=== PATIENT | male | born 1965 | race Caucasian/White ===

== ENCOUNTER → 2018-11-19 | Outpatient (CLI) | payer BC ==
[2018-11-19 11:33] LABS: Appearance,Urine Clear (Clear); Bilirubin,Urine Negative (Negative); Blood,Urine Negative (Negative); Color,Urine Yellow; Glucose,Urine (UA) Negative (Negative); Ketones,Urine Negative (Negative); Leukocyte Esterase,Urine Negative (Negative); Nitrite,Urine Negative (Negative); PH, Urine 5.5 (5.0-8.0); Protein,Urine Negative (Negative); Specific Gravity,Urine 1.019 (1.001-1.035); Urobilinogen,Urine <2.0 mg/dL (<2.0)
[2018-11-19 11:44] LABS: HCT 47.6 % (39.0-53.0); HGB 15.3 gm/dL (13.0-17.5); MCHC 32.2 g/dL (31.0-37.0); MCV 102.6 fL (80.0-100.0); Macrocytosis Slight; Mean Platelet Volume 6.4; Platelet Count 234 k/uL (150-450); RBC 4.64 m/uL (4.30-5.90); RDW 12.4 % (11.5-15.5); WBC 8.6 k/uL (3.8-10.6)
[2018-11-19 11:49] LABS: INR 0.9 (<1.2); Partial Thromboplastin Time 24.1 sec (22.0-30.0); Prothrombin Time 9.7 sec (9.0-12.0)
== END ==
LOC: LABPAT 09:10
PROVIDERS: ATTEND Orthopaedic Surgery
DX: Z01.818 Encounter for other preprocedural examination (principal); Z01.812 Encounter for preprocedural laboratory examination
CPT/HCPCS: 36415; 81003; 85027; 85610; 85730; 87070

== ENCOUNTER → 2018-11-23 | Outpatient (CLI) | payer BC ==
[2018-11-23 13:00] LABS: ALT 48 U/L (21-72); AST 24 U/L (17-59); Albumin 4.4 g/dL (3.5-5.0); Alkaline Phosphatase 66 U/L (38-126); Anion Gap 7 mmol/L; Blood Urea Nitrogen 11 mg/dL (9-20); Calcium 9.8 mg/dL (8.4-10.2); Carbon Dioxide 26 mmol/L (22-30); Chloride 107 mmol/L (98-107); Glucose 96 mg/dL (74-99); Potassium 5.1 mmol/L (3.5-5.1); Sodium 140 mmol/L (137-145); Total Bilirubin 0.5 mg/dL (0.2-1.3); Total Protein 7.4 g/dL (6.3-8.2)
== END | disposition home or self-care (01) ==
LOC: LABPAT 11:52
PROVIDERS: ATTEND Orthopaedic Surgery
DX: Z01.812 Encounter for preprocedural laboratory examination (principal)
CPT/HCPCS: 36415; 80053

== ENCOUNTER 2018-12-04 07:00 | Inpatient (IN) | payer BC ==
[~2018-12-04 07:00] MED LIST: ACETAMINOPHEN TAB 500 MG TAB PO ONE; HYDROmorphone 0.5 MG/0.5 ML SYRINGE IVP PRN; MELOXICAM 7.5 MG TAB PO ONE; MORPHINE SULFATE 4 MG/ML SYRINGE IV PRN; TRANEXAMIC ACID 1,000 MG in SODIUM CHLORIDE 0.9% 100 ML IVPB ONE; ceFAZolin IN SWFI 2 GM/20 ML SYRINGE IVP ONE
[2018-12-04] MEDS: LACTATED RINGERS 1,000 ML IV SCH ×2 (08:29→22:31)
[2018-12-04] MEDS ORDERED: LIDOCAINE 1% 20 ML VIAL (10MG/ML) FOR IV START INTRADERMA ONE (08:29)
[2018-12-04] MEDS ORDERED: ONDANSETRON 4 MG/2 ML VIAL IVP ONE (08:30)
[2018-12-04] MEDS ORDERED: DEXAMETHASONE SOD PHOSPHATE 10 MG/ML 1 ML VIAL IV ONE (08:32)
[2018-12-04] MEDS ORDERED: ONDANSETRON 4 MG/2 ML VIAL IVP PRN (09:01)
[2018-12-04] MEDS ORDERED: NALOXONE 0.4 MG/ML 1 ML VIAL IV PRN (09:01)
[2018-12-04] MEDS ORDERED: hydrOXYzine PAMOATE 25 MG CAP PO PRN (09:01)
[2018-12-04] MEDS ORDERED: DIAZEPAM 5 MG TAB PO PRN (09:01)
[2018-12-04] MEDS ORDERED: HYDROmorphone 1 MG/ML 1 ML SYRINGE IVP PRN (09:01)
[2018-12-04] MEDS ORDERED: HYDROcodone/APAP 5-325MG 1 EACH TAB PO PRN (09:01)
[2018-12-04] MEDS ORDERED: MAGNESIUM HYDROXIDE 2,400 MG/10 ML CUP PO PRN (09:01)
[2018-12-04] MEDS ORDERED: HYDROmorphone 0.5 MG/0.5 ML SYRINGE IVP PRN ×2 (09:01)
[2018-12-04] MEDS: ROPIVACAINE 246.25 MG, EPINEPHrine 0.5 MG, KETOROLAC 30 MG, cloNIDine HCL/PF 80 MCG, WA... MISCELLANE ONE ×10 (09:08→09:48)
[2018-12-04] MEDS ORDERED: SODIUM CHLORIDE 0.9% 100 ML BAG ONE (09:25)
[2018-12-04] MEDS ORDERED: HEPARIN SODIUM,PORCINE 10,000 UNIT/ML 1 ML VIAL ONE (09:25)
[2018-12-04] MEDS ORDERED: SODIUM CHLORIDE 0.9% IRRIG 1,000 ML BTL IRRIGATION ONE (09:25)
[2018-12-04] MEDS ORDERED: MIDAZOLAM 2 MG/2 ML VIAL ONE (09:25)
[2018-12-04] MEDS ORDERED: diphenhydrAMINE 50 MG/ML 1 ML VIAL ONE (09:25)
[2018-12-04] MEDS ORDERED: fentaNYL (PF) 50 MCG/ML 2 ML AMP ONE (09:25)
[2018-12-04] MEDS ORDERED: TRANEXAMIC ACID 1,000 MG/10 ML VIAL ONE (09:25)
[2018-12-04] MEDS ORDERED: ceFAZolin 3,000 MG in SODIUM CHLORIDE 0.9% IRRIGATIO 3,000 ML IRRIGATION ONE (10:10)
[2018-12-04] MEDS ORDERED: LACTATED RINGERS 1,000 ML IV ONE (10:10)
--- NOTE | 2018-12-04 11:11 | P.OP ---
Date of Procedure: 12/04/18 Preoperative Diagnosis: Avascular necrosis right hip Postoperative Diagnosis: Avascular necrosis right hip Procedure(s) Performed: Right total hip arthroplasty with a direct anterior approach Implants: Vizcarra and nephew Polarstem size 6 standard Vizcarra [employer] Nephew R3, 3 hole acetabular shell, 52 mm Vizcarra [employer] Nephew reflection 6.5 mm cancellus screw, 20 mm 2 V[employer]carra [employer] Nephew R3, XLPE 20 acetabular liner Vizcarra & Nephew Oxinium femoral head 36 m, +0 All components were press-fit. The articulation is Oxinium on polyethylene. Anesthesia: spinal Surgeon: Charli Sandoval Make Up Girl #1: Liz Gee Estimated Blood Loss (ml): 200 (60 mL returned with Cell Saver) Pathology: other (Femoral head) Condition: stable Disposition: PACU Indications for Procedure: After failure of conservative treatment we discussed the surgical and nonsurgical treatment options at length. Patient wishes to proceed with a total hip arthroplasty with a direct anterior approach. Complications specific to this procedure were discussed at length, including but not limited to infection, leg length discrepancy, dislocation, and nerve injury. Patient is aware of all these complications and informed consent was obtained Operative Findings: The operative findings are consistent with Avascular necrosis of the right hip Description of Procedure: Patient was seen and evaluated in the preoperative area, consent was reviewed, and the surgical site was marked with a skin marker. Patient was then brought to the operating room and given prophylactic antibiotics intravenously. 1 g of Tranexamic acid was also given. A spinal anesthetic was administered by the anesthesia department. The patient was then placed on the [place] table with the bony prominences well-padded. The hip area was then prepped and draped in usual sterile fashion. A universal timeout was then performed, which confirmed the patient's name, surgical site, ALLERGIES, and procedure being performed. Next the incision site was located at 1 cm distal and 1 cm lateral to the anterior superior iliac spine. The skin and subcutaneous tissues were sharply incised. Incision was carefully dissected down to the fascia overlying the tensor fascia burt muscle. This fascia was then incised in line with the incision. Next, using blunt finger dissection, the tensor fascia burt muscle was dissected off its investing fascia. The muscle was then carefully retracted laterally with a cobra retractor over the lateral neck of the femur. Next, the circumflex vessels were identified and cauterized using the AquaMantis device. The anterior hip capsule was then exposed. The capsule was then opened and an inverted T fashion. Cobra retractors were then placed intracapsularly. The proximal femur was then visualized. The femoral neck was then osteotomized appropriate level above the lesser trochanter. Small amount of traction was placed with the [place] table. A small wedge of bone was then removed from the remaining femoral head. Next, using a corkscrew femoral head was easily removed from the acetabulum. On gross visual inspection, the femoral head had complete delamination of the articular cartilage consistent with avacular necrosis . Attention was then turned to the acetabulum. the acetabulum was exposed and any remaining labrum was excised. Sequential reaming of the acetabulum was performed using fluoroscopic guidance. When the appropriate size was reached, a trial was then placed. The position and fit of the trial was checked with fluoroscopy. The trial was then removed. Then, using fluoroscopic guidance, the final implant was impacted at 20 of anteversion and 40 of abduction, and fully seated in the acetabulum. 2 screws were then placed in the acetabulum. Again fluoroscopy was used to check position of the screws. Next, the liner was then impacted, with a 20 elevated liner located in the anterior superior quadrant. Component locking was confirmed. Attention was then directed to the femur. With the aid of the [place] table, the femur was externally rotated to approximately 130, extended, and abducted under the opposite leg. A side hook was then placed under the proximal femur, and the side hook elevator was used to elevate the proximal femur. Retractors were then placed. A capsular release was performed, as well as a release of the conjoined tendon, which afforded excellent visualization of the proximal femur. Next, a box osteotome was used to lateralize the proximal femur. A blanket cutter hand was then used to locate the femoral canal. Sequential broaching was then performed with appropriate size which afforded excellent fixation in the proximal femur. A trial was then placed with appropriate head and neck, and the hip was gently reduced with the aid of the [place] table. Fluoroscopy was then used to check position of the components, as well as to ensure equal leg lengths. The hip was then gently dislocated and the trials were then removed. Final implants were then impacted and the hip was again reduced. Final fluoroscopic x-rays confirmed that the components were in anatomic position, as well as equal leg lengths. The hip was also taken through range of motion, and found to be stable. The hip was then copiously irrigated with antibiotic solution with pulsatile lavage. The hip was then irrigated with Irrisept solution. The soft tissues were then injected with a ropivacaine solution, which consisted of 246.25 mg of ropivacaine, 0.5 mg of epinephrine, 30 mg of Toradol, 80 g of clonidine, and 48.45 mL of sterile water, for a total of 100 mL of fluid injected. A second dose of 1 g of Tranexamic acid was also given. the fascia was then closed with 2-0 strata fix suture. The subcutaneous tissue was closed with 3-0 Vicryl. The subcuticular tissue was closed with 3-0 strata fix suture. The skin was then closed with Dermabond glue and a sterile silver dressing. The patient was then transferred to the recovery room in stable co ndition. The patient observation assistant JANICE Turk was required due to the complexity of surgery, and the need for skilled medical surgical tech for positioning, draping, exposure, retraction, and closure of the wound.
--- NOTE | 2018-12-04 11:40 | XR ---
EXAMINATION TYPE: XR Hip Limited RT DATE OF EXAM: 12/04/2018 CLINICAL HISTORY: Right hip pain and osteoarthritis. TECHNIQUE: Single AP portable view of right hip is obtained immediately postoperatively. COMPARISON: None. FINDINGS: Metallic hardware from right hip arthroplasty is seen and appears satisfactory in alignment and position. There is evidence of recent surgery with subcutaneous gas noted laterally. IMPRESSION: Metallic hardware from right hip arthroplasty is satisfactory in position.
--- NOTE | 2018-12-04 11:41 | XR ---
EXAMINATION TYPE: XR Hip Limited RT, FL guidance operating room DATE OF EXAM: 12/04/2018 CLINICAL HISTORY: Right hip replacement TECHNIQUE: Fluoroscopy. COMPARISON: None. FINDINGS: Fluoroscopic guidance was provided during procedure performed by Dr. Sandoval. A total of 39 seconds of fluoroscopic time was utilized during the procedure and 2 spot images was acquired dem onstrating a right hip arthroplasty. IMPRESSION: As Above.
[2018-12-04] MEDS ORDERED: ALBUTEROL NEBULIZED 2.5 MG/3 ML INHALATION PRN (13:57)
--- NOTE | 2018-12-04 14:04 | P.CONS ---
History of Present Illness - Reason for Consult Consult date: 12/04/18 Medical management - History of Present Illness This is a 53-year-old male patient of Dr. Valle with past medical history of mild persistent asthma, gastroesophageal reflux disease, osteoarthritis. Patient has been brought into the hospital under the care of Dr. Sandoval status post right total hip arthroplasty direct anterior approach. The patient denies any lightheadedness or dizziness. His blood pressures been stable. He is not nauseated but does not have an appetite at this time of evaluation. He has not required Contreras catheter placement. Patient is on aspirin for DVT prophylaxis. Review of Systems All systems: negative Constitutional: Reports poor appetite, Denies anorexia, Denies chills, Denies fatigue, Denies fever, Denies lethargy, Denies malaise, Denies weakness Eyes: denies blurred vision, denies pain Ears, nose, mouth and throat: Denies dysphagia, Denies headache, Denies nasal congestion, Denies nasal discharge, Denies sore throat, Denies vertigo Cardiovascular: Denies chest pain, Denies decreased exercise tolerance, Denies dyspnea on exertion, Denies edema, Denies leg edema, Denies lightheadedness, Denies shortness of breath, Denies syncope Respiratory: Denies cough, Denies cough with sputum, Denies dyspnea, Denies excessive sputum, Denies hemoptysis, Denies home oxygen, Denies wheezing Gastrointestinal: Reports loss of appetite, Denies abdominal pain, Denies bloating, Denies diarrhea, Denies melena, Denies nausea, Denies vomiting Genitourinary: Denies dysuria, Denies urinary retention Musculoskeletal: Denies frequent falls, Denies gait dysfunction, Denies myalgias Integumentary: Reports wounds, Denies color changes, Denies darkening of skin, Denies pruritus, Denies rash Neurological: Denies numbness, Denies weakness Psychiatric: Denies anxiety, Denies depression Endocrine: Denies fatigue, Denies weight change Past Medical History Past Medical History: Asthma, GERD/Reflux, Osteoarthritis (OA) Additional Past Medical History / Comment(s): DOES NOT TAKE FLU OR PNEUMONIA VACCINES. History of Any Multi-Drug Resistant Organisms: None Reported Additional Past Surgical History / Comment(s): BILATERAL CARPAL TUNNEL. COLONSCOPY Past Anesthesia/Blood Transfusion Reactions: No Reported Reaction Past Psychological History: No Psychological Hx Reported Smoking Status: Current every day smoker Past Alcohol Use History: Occasional Additional Past Alcohol Use History / Comment(s): 1PPD, FOR 30 YRS. No illicit drug use, no alcohol abuse. He lives at home with his . Past Drug Use History: None Reported - Past Family History Mother Family Medical History: No Reported History Father Family Medical History: No Reported History Medications and Allergies Home Medications Medication Instructions Recorded Confirmed Type Albuterol Inhaler [Ventolin Hfa 1 puff INHALATION DIRECTED PRN 11/27/18 12/04/18 History Inhaler] Ibuprofen [Motrin Ib] 800 mg PO TID PRN 11/27/18 12/04/18 History Ranitidine HCl [Zantac] 150 mg PO BID 11/27/18 12/04/18 History Acetaminophen Tab [Tylenol Tab] 1,000 mg PO Q6HR PRN 12/04/18 12/04/18 History Allergies Allergy/AdvReac Type Severity Reaction Status Date / Time No Known Allergies Allergy Verified 11/27/18 13:32 Physical Exam Vitals: Vital Signs Temp Pulse Pulse Resp BP BP Pulse Ox 12/04/18 13:00 71 16 102/70 94 L 12/04/18 12:45 68 16 116/77 95 12/04/18 12:30 66 16 127/75 97 12/04/18 12:15 76 16 119/65 100 12/04/18 12:02 70 16 129/79 99 12/04/18 11:47 69 16 132/73 96 12/04/18 11:32 76 16 108/88 97 12/04/18 11:17 97.1 F L 73 16 109/62 98 12/04/18 08:15 97.9 F 78 18 136/86 95 Intake and Output 12/03/18 12/04/18 12/04/18 22:59 06:59 14:59 Intake Total 1701 Output Total 200 Balance 1501 Intake: IV 1701 Output: Estimated Blood Loss 200 Gen: This is a 53-year-old male. He is resting in bed appears to be c omfortable and in no acute distress. HEENT: Head is atraumatic, normocephalic. Pupils equal, round. Sclerae is anicteric. NECK: Supple. No JVD. No lymphadenopathy. No thyromegaly. LUNGS: Clear to auscultation. No wheezes or rhonchi. No intercostal retractions. HEART: Regular rate and rhythm. No murmur. ABDOMEN: Soft. Bowel sounds are present. No masses. No tenderness. EXTREMITIES: No pedal edema. No calf tenderness. Dorsalis pedis +2 bilaterally. Small dressing in place to the right hip with no breakthrough bleeding or drainage. NEUROLOGICAL: Patient is awake, alert and oriented x3. Cranial nerves 2 through 12 are grossly intact. Assessment and Plan Plan: 1. Osteoarthritis status post right total hip arthroplasty, anterior approach. Continue current pain management, PT and OT per orthopedics. Aspirin 325 mg twice daily for DVT prophylaxis. Incentive spirometry to reduce incidence of atelectasis and hospital-acquired pneumonia. 2. Mild persistent asthma. Continue Ventolin inhaler as needed for shortness of breath. 3. Gastroesophageal reflux disease. Continue Zantac or equivalent. 4. Tobacco use and dependence. Nicotine patch. Discharge plan: home Impression and plan of care have been directed as dictated by the signing physician. Khalida iDaz nurse practitioner acting as scribe for signing physician.
[2018-12-04] MEDS: ceFAZolin IN SWFI 2 GM/20 ML SYRINGE IVP SCH ×2 (15:38→23:00)
[2018-12-04 17:13] VITALS: BMI 26.9
[2018-12-04] MEDS: SODIUM CHLORIDE 0.9% 1,000 ML IV SCH (17:15)
[2018-12-04] MEDS: HYDROcodone/APAP 5-325MG 1 EACH TAB PO PRN ×2 (18:00→23:01)
[2018-12-04] MEDS: ASPIRIN 325 MG TAB PO SCH (20:10)
[2018-12-04] MEDS ORDERED: SENNOSIDES-DOCUSATE SODIUM 1 EACH TAB PO SCH (21:00)
[2018-12-04] MEDS: FAMOTIDINE 20 MG TAB PO SCH (23:00)
[2018-12-05] MEDS: SODIUM CHLORIDE 0.9% 1,000 ML IV SCH (01:47)
[2018-12-05 07:34] VITALS: BP 155/72; PULSE 70; RESP 14; TEMP 98
[2018-12-05] MEDS: HYDROcodone/APAP 5-325MG 1 EACH TAB PO PRN (07:34)
[2018-12-05] MEDS: FAMOTIDINE 20 MG TAB PO SCH (07:35)
[2018-12-05] MEDS: ASPIRIN 325 MG TAB PO SCH (07:35)
[2018-12-05 08:38] LABS: Basophils % (A) 0 %; Eosinophils # (A) 0.1 k/uL (0-0.7); Eosinophils % (A) 1 %; HCT 39.4 % (39.0-53.0); HGB 12.8 gm/dL (13.0-17.5); Lymphocytes % (A) 16 %; MCH 32.7 pg (25.0-35.0); MCHC 32.4 g/dL (31.0-37.0); MCV 100.9 fL (80.0-100.0); Monocytes # (A) 0.9 k/uL (0-1.0); Monocytes % (A) 7 %; Neutrophils # (A) 9.5 k/uL (1.3-7.7); Neutrophils % (A) 76 %; Platelet Count 227 k/uL (150-450); RBC 3.91 m/uL (4.30-5.90); RDW 12.2 % (11.5-15.5); WBC 12.5 k/uL (3.8-10.6)
--- NOTE | 2018-12-05 08:49 | P.DS ---
Providers Date of admission: 12/04/18 07:43 Expected date of discharge: 12/05/18 Attending physician: Charli Sandoval Consults: 12/04/18 09:01 Consult Physician Routine Consulting Provider: Hayde Valle Consult Reason/Comments: medical management Do you want consulting provider notified?: Yes Primary care physician: Stated None - Discharge Diagnosis(es) (1) Status post total hip replacement, right Current Visit: Yes Status: Acute (2) Avascular necrosis of bone of right hip Current Visit: Yes Status: Acute Hospital Course: This is a 53-year-old male with known history of avascular necrosis of the right hip. The patient presents for evaluation. After discussion and consideration patient elects to proceed with total hip arthroplasty. The patient is seen preoperatively by Dr. Sandoval and medically cleared for surgery by their primary care physician. Patient is admitted to [facility] on 12/04/2018 for total hip arthroplasty. The procedures performed without complication or sequelae. The patient is doing well postoperatively. Labs and vital signs are stable on day of discharge. On day of discharge patient's hip incision is healing well. There is minimal erythema. There is no drainage noted at this time. There is minimal soft tissue swelling to the hip and thigh. Patient has full foot and ankle motion without difficulty or pain. Calf is soft and nontender to palpation. Neurovascular status to the right lower extremity is intact. Patient is discharged home in good condition. Opioid start talking form is reviewed and signed at patient bedside. Please see med rec for accurate list of home medications. Plan - Discharge Summary Discharge Rx Participant: No New Discharge Prescriptions: New Aspirin 325 mg PO BID #60 tab HYDROcodone/APAP 5-325MG [[place] 5-325] 1 - 2 tab PO Q6HR PRN #56 tab PRN Reason: Pain Sennosides [Senokot] 1 tab PO BID #60 tablet No Action Ranitidine HCl [Zantac] 150 mg PO BID Ibuprofen [Motrin Ib] 800 mg PO TID PRN PRN Reason: Pain Albuterol Inhaler [Ventolin Hfa Inhaler] 1 puff INHALATION RT-DAILY PRN PRN Reason: Shortness Of Breath Or Wheezing Acetaminophen Tab [Tylenol Tab] 1,000 mg PO Q6HR PRN PRN Reason: Pain Discharge Medication List Albuterol Inhaler [Ventolin Hfa Inhaler] 1 puff INHALATION RT-DAILY PRN 11/27/18 [History] Ibuprofen [Motrin Ib] 800 mg PO TID PRN 11/27/18 [History] Ranitidine HCl [Zantac] 150 mg PO BID 11/27/18 [History] Acetaminophen Tab [Tylenol Tab] 1,000 mg PO Q6HR PRN 12/04/18 [History] Aspirin 325 mg PO BID #60 tab 12/05/18 [Rx] HYDROcodone/APAP 5-325MG [[place] 5-325] 1 - 2 tab PO Q6HR PRN #56 tab 12/05/18 [Rx] Sennosides [Senokot] 1 tab PO BID #60 tablet 12/05/18 [Rx] Follow up Appointment(s)/Referral(s): Charli Sandoval DO [Doctor of Osteopathic Medicine] - 2 Weeks Activity/Diet/Wound Care/Special Instructions: Weightbearing as tolerated with walker. Leave dressing intact. Dressing may be removed by home care nurse or by patient in 10 days. May shower with dressing on. Please follow-up with [facility] in 2 weeks and call with any questions or concerns, . Discharge Disposition: HOME WITH HOME HEALTH SERVICES
[2018-12-05] MEDS ORDERED: MELOXICAM 7.5 MG TAB PO SCH (09:00)
--- NOTE | 2018-12-05 15:02 | P.PN ---
Subjective Progress Note Date: 12/05/18 This is a 53-year-old male patient of Dr. Valle with past medical history of mild persistent asthma, gastroesophageal reflux disease, osteoarthritis. Patient has been brought into the hospital under the care of Dr. Sandoval status post right total hip arthroplasty direct anterior approach. The patient denies any lightheadedness or dizziness. His blood pressures been stable. He is not nauseated but does not have an appetite at this time of evaluation. He has not required Contreras catheter placement. Patient is on aspirin for DVT prophylaxis. 11/07: Patient denies any complaints overnight. He has worked with physical therapy and is doing well. Pain is currently controlled. He is scheduled for discharge home today. Medication reconciliation has been reviewed and no medication changes have been made. Orthopedics is addressing aspirin for DVT prophylaxis and [place] for pain. Review of Systems Constitutional: Reports poor appetite, Denies anorexia, Denies chills, Denies fatigue, Denies fever, Denies lethargy, Denies malaise, Denies weakness Eyes: denies blurred vision, denies pain Ears, nose, mouth and throat: Denies dysphagia, Denies headache, Denies nasal congestion, Denies nasal discharge, Denies sore throat, Denies vertigo Cardiovascular: Denies chest pain, Denies decreased exercise tolerance, Denies dyspnea on exertion, Denies edema, Denies leg edema, Denies lightheadedness, Denies shortness of breath, Denies syncope Respiratory: Denies cough, Denies cough with sputum, Denies dyspnea, Denies excessive sputum, Denies hemoptysis, Denies home oxygen, Denies wheezing Gastrointestinal: Reports loss of appetite, Denies abdominal pain, Denies bloating, Denies diarrhea, Denies melena, Denies nausea, Denies vomiting Genitourinary: Denies dysuria, Denies urinary retention Musculoskeletal: Denies frequent falls, Denies gait dysfunction, Denies myalgias Integumentary: Reports wounds, Denies color changes, Denies darkening of skin, Denies pruritus, Denies rash Neurological: Denies numbness, Denies weakness Psychiatric: Denies anxiety, Denies depression Endocrine: Denies fatigue, Denies weight change Objective - Vital Signs Vital signs: Vital Signs Temp 98 F 12/05/18 07:00 Pulse 70 03/20/19 07:00 Resp 14 12/05/18 07:40 BP 155/72 12/05/18 07:00 Pulse Ox 96 12/05/18 07:00 Intake & Output 12/04/18 12/05/18 12/05/18 18:59 06:59 18:59 Intake Total 1701 Output Total 600 225 Balance 1101 -225 Intake: IV 1701 Output: Urine 400 225 Estimated Blood Loss 200 Other: Voiding Method Urinal Urinal # Voids 2 - Exam Gen: This is a 53-year-old male. He is sitting on the edge of the bed appears to be comfortable and in no acute distress. HEENT: Head is atraumatic, normocephalic. Pupils equal, round. Sclerae is anicteric. NECK: Supple. No JVD. No lymphadenopathy. No thyromegaly. LUNGS: Clear to auscultation. No wheezes or rhonchi. No intercostal retract ions. HEART: Regular rate and rhythm. No murmur. ABDOMEN: Soft. Bowel sounds are present. No masses. No tenderness. EXTREMITIES: No pedal edema. No calf tenderness. Dorsalis pedis +2 bilaterally. Small dressing in place to the right hip with no breakthrough bleeding or drainage. NEUROLOGICAL: Patient is awake, alert and oriented x3. Cranial nerves 2 through 12 are grossly intact. - Labs CBC & Chem 7: 12/05/18 07:27 Labs: Abnormal Lab Results - Last 24 Hours (Table) 12/05/18 Range/Units 07:27 WBC 12.5 H (3.8-10.6) k/uL RBC 3.91 L (4.30-5.90) m/uL Hgb 12.8 L (13.0-17.5) gm/dL MCV 100.9 H (80.0-100.0) fL Neutrophils # 9.5 H (1.3-7.7) k/uL Assessment and Plan Plan: 1. Osteoarthritis status post right total hip arthroplasty, anterior approach. Continue current pain management, PT and OT per orthopedics. Aspirin 325 mg twice daily for DVT prophylaxis. Incentive spirometry to reduce incidence of atelectasis and hospital-acquired pneumonia. 2. Mild persistent asthma. Continue Ventolin inhaler as needed for shortness of breath. 3. Gastroesophageal reflux disease. Continue Zantac or equivalent. 4. Tobacco use and dependence. Nicotine patch. Discharge plan: home today in stable condition Impression and plan of care have been directed as dictated by the signing physician. Khalida Diaz nurse practitioner acting as scribe for signing physician.
== END 2018-12-05 10:48 | disposition home health service (06) | DRG 470 ==
LOC: 2ORMAIN 07:43 → 4SSUR 13:04
PROVIDERS: ADMIT Orthopaedic Surgery; ATTEND Orthopaedic Surgery
PROC: 30233N0 Transfusion of Autologous Red Blood Cells into Peripheral Vein, Percutaneous Approach (ICD-10-PCS; 2018-12-04)
PROC: 0SR906A Replacement of Right Hip Joint with Oxidized Zirconium on Polyethylene Synthetic Substitute, Uncemented, Open Approach (ICD-10-PCS; principal; 2018-12-04 09:20)
DX: M87.051 Idiopathic aseptic necrosis of right femur (principal); M89.751 Major osseous defect, right pelvic region and thigh; K21.9 Gastro-esophageal reflux disease without esophagitis; I10 Essential (primary) hypertension; E78.5 Hyperlipidemia, unspecified; J44.9 Chronic obstructive pulmonary disease, unspecified; J45.30 Mild persistent asthma, uncomplicated; H91.90 Unspecified hearing loss, unspecified ear; F17.210 Nicotine dependence, cigarettes, uncomplicated; Z79.899 Other long term (current) drug therapy; Z82.49 Family history of ischemic heart disease and other diseases of the circulatory system
CPT/HCPCS: 73501; 85025; 86850; 86891; 86900; 86901; 88305; 88311

== ENCOUNTER → 2021-08-13 | Outpatient (CLI) | payer BC ==
[2021-08-13 10:14] LABS: INR 0.9 (<1.2); Partial Thromboplastin Time 24.7 sec (22.0-30.0); Prothrombin Time 9.7 sec (9.0-12.0)
[2021-08-13 10:33] LABS: Appearance,Urine Clear (Clear); Bilirubin,Urine Negative (Negative); Blood,Urine Negative (Negative); Color,Urine Yellow; Glucose,Urine (UA) Negative (Negative); Ketones,Urine Negative (Negative); Leukocyte Esterase,Urine Negative (Negative); Nitrite,Urine Negative (Negative); PH, Urine 5.5 (5.0-8.0); Protein,Urine Trace (Negative); Specific Gravity,Urine 1.025 (1.001-1.035); Urobilinogen,Urine <2.0 mg/dL (<2.0)
[2021-08-13 14:16] LABS: ALT 37 U/L (10-49); AST 25 U/L (14-35); African American GFR (CKD) 110.3 (60.0-200.0); Albumin 4.7 g/dL (3.8-4.9); Albumin/Globulin Ratio 2.04 (1.60-3.17); Alkaline Phosphatase 65 U/L (41-126); Blood Urea Nitrogen 14.4 mg/dL (9.0-27.0); Calcium 9.4 mg/dL (8.7-10.3); Carbon Dioxide 18.3 mmol/L (20.0-27.5); Chloride 95 mmol/L (96-109); Globulin 2.3 g/dL (1.6-3.3); Glucose 97 mg/dL (70-110); Non-African American GFR(CKD) 95.1 (60.0-200.0); Sodium 127 mmol/L (135-145); Total Bilirubin <0.20 mg/dL (0.30-1.20)
[2021-08-13 15:10] LABS: Basophils # (A) 0.05 X 10*3/uL (0.00-0.10); Basophils % (A) 0.6 %; Eosinophils % (A) 7.4 %; HCT 37.3 % (39.6-50.0); HGB 12.1 g/dL (13.0-17.0); Lymphocytes # (A) 2.26 X 10*3/uL (0.90-5.00); Lymphocytes % (A) 27.8 %; MCH 30.4 pg (27.0-32.0); MCHC 32.4 g/dL (32.0-37.0); MCV 93.7 fL (80.0-97.0); Mean Platelet Volume 8.7 fL (9.5-12.2); Monocytes # (A) 0.84 X 10*3/uL (0.20-1.00); Monocytes % (A) 10.3 %; Neutrophils # (A) 4.36 X 10*3/uL (1.80-7.70); Neutrophils % (A) 53.5 %; Platelet Count 295 X 10*3/uL (140-440); RBC 3.98 X 10*6/uL (4.40-5.60); RDW 13.3 % (11.5-14.5); WBC 8.14 X 10*3/uL (4.50-10.00)
== END | disposition home or self-care (01) ==
LOC: LABWHC1 08:51
PROVIDERS: ATTEND Orthopaedic Surgery Orthopaedic Surgery of the Spine
DX: Z01.812 Encounter for preprocedural laboratory examination (principal); M48.061 Spinal stenosis, lumbar region without neurogenic claudication
CPT/HCPCS: 36415; 80053; 81003; 85025; 85610; 85730; 87070; 93005

== ENCOUNTER → 2021-08-13 | Outpatient (CLI) | payer BC ==
--- NOTE | 2021-08-13 10:31 | XR ---
EXAMINATION TYPE: XR chest 2V DATE OF EXAM: 08/13/2021 COMPARISON: NONE HISTORY: Z01.818 PRE OP TECHNIQUE: Frontal and lateral views of the chest are obtained. FINDINGS: There is no focal air space opacity, pleural effusion, or pneumothorax seen. The cardiac silhouette size is within normal limits. Aorta is dense. Right hemidiaphragm somewhat elevated, ther e may be eventration. The osseous structures are intact, there is thoracic spondylosis, spinal curvat ure. IMPRESSION: No acute cardiopulmonary process.
== END | disposition home or self-care (01) ==
LOC: LABWHC1 08:54
PROVIDERS: ATTEND Family Medicine
DX: E87.1 Hypo-osmolality and hyponatremia (principal); E87.5 Hyperkalemia
CPT/HCPCS: 71046

== ENCOUNTER → 2021-08-23 | Outpatient (CLI) | payer BC ==
[2021-08-24 01:31] LABS: HGB 13.3 g/dL (13.0-17.0); MCH 30.9 pg (27.0-32.0); MCHC 33.3 g/dL (32.0-37.0); Mean Platelet Volume 8.8 fL (9.5-12.2); Platelet Count 331 X 10*3/uL (140-440); RDW 13.2 % (11.5-14.5); WBC 8.21 X 10*3/uL (4.50-10.00)
[2021-08-24 12:31] LABS: Potassium 4.9 mmol/L (3.5-5.5)
== END | disposition home or self-care (01) ==
LOC: LABWHC1 16:32
PROVIDERS: ATTEND Family Medicine
DX: E87.5 Hyperkalemia (principal); D64.9 Anemia, unspecified
CPT/HCPCS: 36415; 84132; 84295; 85027

== ENCOUNTER 2021-08-25 07:44 | Observation (INO) | payer BC ==
[2021-08-23 15:42] VITALS: BMI 27.8
[~2021-08-25 07:44] MED LIST changes: -ACETAMINOPHEN TAB 500 MG TAB PO ONE; +DEXAMETHASONE SOD PHOSPHATE 4 MG/ML 1 ML VIAL IV ONE; -HYDROmorphone 0.5 MG/0.5 ML SYRINGE IVP PRN; +LIDOCAINE 1% (10MG/ML) FOR IV START INTRADERMA PRN; -MELOXICAM 7.5 MG TAB PO ONE; +MIDAZOLAM 2 MG/2 ML VIAL IV PRN; -MORPHINE SULFATE 4 MG/ML SYRINGE IV PRN; -TRANEXAMIC ACID 1,000 MG in SODIUM CHLORIDE 0.9% 100 ML IVPB ONE; +ceFAZolin 1,000 MG in SODIUM CHLORIDE 0.9% IRRIGATIO 1,000 ML IRRIGATION PRN; -ceFAZolin IN SWFI 2 GM/20 ML SYRINGE IVP ONE
[2021-08-25] MEDS: ONDANSETRON 4 MG/2 ML VIAL IVP ONE ×2 (08:46→17:16)
[2021-08-25] MEDS: LACTATED RINGERS 1,000 ML IV SCH (08:46)
[2021-08-25] MEDS ORDERED: SODIUM CHLORIDE 0.9% 1,000 ML IV ONE (09:20)
[2021-08-25] MEDS ORDERED: ONDANSETRON 4 MG/2 ML VIAL IVP ONE (09:20)
[2021-08-25] MEDS ORDERED: ePHEDrine 50 MG/ML 1 ML AMP ONE (10:19)
[2021-08-25] MEDS ORDERED: PHENYLEPHRINE-0.9% NACL SYG 1,000 MCG/10 ML SYRINGE ONE (10:19)
[2021-08-25] MEDS ORDERED: fentaNYL (PF) 50 MCG/ML 2 ML AMP ONE (10:19)
[2021-08-25] MEDS ORDERED: NEOSTIGMINE 1 MG/ML 10 ML VIAL ONE (10:19)
[2021-08-25] MEDS ORDERED: SUCCINYLCHOLINE CHLORIDE 100 MG/5 ML SYR IV ONE (10:19)
[2021-08-25] MEDS ORDERED: PROPOFOL 10 MG/ML 20 ML VIAL IV ONE (10:19)
[2021-08-25] MEDS ORDERED: LIDOCAINE 1% INJ 10MG/ML (20 ML MDV) ONE (10:19)
[2021-08-25] MEDS ORDERED: MIDAZOLAM 2 MG/2 ML VIAL ONE (10:19)
[2021-08-25] MEDS ORDERED: HYDROmorphone (PF) 1 MG/ML ONE (10:19)
[2021-08-25] MEDS ORDERED: HEPARIN SODIUM,PORCINE 10,000 UNIT/ML 1 ML VIAL ONE (10:19)
[2021-08-25] MEDS ORDERED: KETAMINE 10 MG/ML 20 ML VIAL ONE (10:19)
[2021-08-25] MEDS ORDERED: SODIUM CHLORIDE 0.9% IRRIG 1,000 ML BTL IRRIGATION ONE (10:19)
[2021-08-25] MEDS ORDERED: ROCURONIUM 10 MG/ML (5 ML VIAL) IV ONE (10:19)
[2021-08-25] MEDS ORDERED: GLYCOPYRROLATE 0.2 MG/ML 2 ML VIAL ONE (10:19)
[2021-08-25] MEDS ORDERED: GELATIN SPONGE,ABSORB (LARGE) 1 EACH SPONGE TOPICAL ONE (10:24)
[2021-08-25] MEDS ORDERED: THROMBIN (BOVINE) 5,000 UNIT VIAL TOPICAL ONE (10:24)
[2021-08-25] MEDS ORDERED: BUPIVACAIN-EPI 0.25%-1:200,000 30 ML VIAL SQ ONE ×2 (10:55→10:59)
[2021-08-25] MEDS ORDERED: LACTATED RINGERS 1,000 ML IV ONE ×2 (11:31→13:51)
[2021-08-25] MEDS ORDERED: MAGNESIUM HYDROXIDE 2,400 MG/10 ML CUP PO PRN (15:31)
[2021-08-25] MEDS ORDERED: ACETAMINOPHEN TAB 325 MG TAB PO PRN (15:31)
[2021-08-25] MEDS ORDERED: HYDROcodone/APAP 5-325MG 1 EACH TAB PO PRN (15:31)
[2021-08-25] MEDS ORDERED: HYDROmorphone 0.5 MG/0.5 ML SYRINGE IVP PRN (15:31)
[2021-08-25] MEDS ORDERED: BENZOCAINE/MENTHOL LOZENG 1 EACH LOZENGE MUCOUS MEM PRN (15:31)
[2021-08-25] MEDS ORDERED: diazePAM 5 MG TAB PO PRN (15:31)
[2021-08-25] MEDS ORDERED: SENNOSIDES-DOCUSATE SODIUM 1 EACH TAB PO PRN (15:31)
[2021-08-25] MEDS ORDERED: CYCLOBENZAPRINE 10 MG TAB PO PRN (15:31)
[2021-08-25] MEDS ORDERED: ACETAMINOPHEN TAB 500 MG TAB PO PRN (15:36)
[2021-08-25] MEDS ORDERED: ALBUTEROL NEBULIZED 2.5 MG/3 ML INHALATION PRN (15:36)
--- NOTE | 2021-08-25 15:36 | XR ---
EXAM TYPE: LUMBAR SPINE X RAY SERIES COMPARISON: NONE HISTORY: Pain TECHNIQUE: 4 views are submitted. FINDINGS: Limited images of the due to resolution are submitted and demonstrate postoperative change. Multiple images are seen. IMPRESSION: 1. Intraoperative images
--- NOTE | 2021-08-25 15:38 | FL ---
EXAMINATION TYPE: FL guidance operating room DATE OF EXAM: 08/25/2021 HISTORY: Fluoroscopy time 22 seconds of fluoroscopy provided. IMPRESSION: 1. Fluoroscopy time.
--- NOTE | 2021-08-25 15:43 | P.OP ---
Date of Procedure: 08/25/21 Preoperative Diagnosis: Degenerative scoliosis, spinal stenosis L2-3 and L3 4 L4 5, asymmetric disc degeneration L2-3 and L3 4 L4 5, lower extremity radiculopathy, neurogenic claudication, facet arthrosis, degenerative disc disease Postoperative Diagnosis: Same Anesthesia: GETA Pathology: none sent Condition: stable Disposition: PACU Description of Procedure: DESCRIPTION OF PROCEDURE(S): BRIEF OPERATIVE NOTE Preoperative Diagnosis: Spondylolisthesis , spinal stenosis , lower extremity radiculopathy, lower extremity weakness, neurogenic claudication, low back pain, degenerative disc disease Postoperative Diagnosis: Same Procedure: Laminectomy and decompression L2-3 and L3 [address] navigation aided Minimally invasive Posterior lateral decompression and facet fusion L2-3 and L3 4 L4 5 Minimally invasive Transforaminal lumbar interbody fusion for a 360 fusion L2-3 L3 4 L4 5 Discectomy for decompression L23 L3 4 L4 5 Placement of interbody graft L2-3 L3 4 L4 5 Use of computer navigation for fusion L2 to L5 Local autogenous bone grafting Aspiration of bone marrow from the vertebral body pedicle L2 on the right Use of bone graft extenders Surgeon: Dr. Funes Director Learning And Development: Willie CAMACHO who is present throughout the entire the case persistence during positioning, dissection, exposure, visualization, and all crucial elements of the case as well as closure. Anesthesia: General anesthesia Estimated blood loss: Approximately 350 mL with approximately 100 given back through Cell Saver Complications: None apparent Components implanted: K2M minimally invasive [place] pedicle screw system withscrews measuring 6.5 mm in diameter to rods one Newcomb interbody cage with 10 mL of osteo amp bio4 bone graft substitute and 30 mL of the BX bone fibers to supplement the local autogenous bone graft and bone marrow aspirate Disposition: To recovery room in good stable condition. OPERATIVE INDICATIONS The patient has had severe issues at their lower extremity in her lower back over the past several years with significant worsening over the past several months. The patient was found have a degenerative scoliosis with asymmetric disc degeneration and significant stenosis causing his claudication and radiculopathy. Over the past few months the patient had pain at their back and their lower extremities. The patient is having severe radicular symptoms at their lower extremity with weakness. The patient is having significant pain in their back. They are unable to obtain any comfort. We did aggressive conservative treatment with medications therapy and interventional pain man agement however thery were not having any relief. The patient also showed evidence of a listhesis with some dynamic instability with lateral listhesis as well and degenerative scoliosis. The patient has been through conservative treatment. We discussed various treatment options including surgery, and the patient wishes to proceed with surgery We discussed the risk, patient's alternatives and benefits of surgery including but not limited to, risk of bleeding risk of infection, risk of need for further surgery, risk of decreased, loss of motion, muscle function, malunion nonunion, hardware failure, nerve damage, paralysis, heart attack, blindness and . They understood issues with the current pandemic and the possibility of exposure. OPERATIVE SUMMARY After discussing all the risks, patient alternatives and benefits at length, the patient elected to proceed with surgical intervention, signed informed consent, and presented for their procedure. The patient was seen and examined in the preoperative holding area and the surgical site was marked. The patient was given antibiotics and brought to the operating room. The patient was sedated and intubated by anesthesia in standard fashion. The patient was positioned on to the operating room table in a prone position on the appropriate frame which was well-padded and well molded. We were careful to pad any bony prominences and pressure points. We were careful to maintain the patient's cervical spine and good neutral alignment and position throughout. The patient was prepped and draped in a normal standard fashion. An appropriate timeout and keystone protocol performed. We were able to proceed with the surgery. The local wound area was infiltrated with local anesthetic. Over the right iliac crest I was able to make small stab incisions and establish a guidepin screw fixation to the iliac crest 2. I was able place the computer referencing device over the guidepins to establish an appropriate reference poi nt for the Ziem CT navigation. We then were able to place patient in an appropriate drape and do a navigation spin for visualization and 3-D reconstruction of the lumbar spine. I was able utilize C-arm guidance and navigation to establish appropriate position over the pedicles bilaterally at the appropriate levels from L2 to L5 . With the appropriate levels confirmed was able to make small incisions over the appropriate pedicle sites bilaterally. Utilizing the computer navigation device I was able to establish bony landmarks at the right iliac crest for a bony reference point for the leander gation device. I was able to establish a Jamshidi needle over the lateral aspect of the pedicle and advanced the trocar into the pedicle being careful not to breech superiorly inferiorly medially or laterally using computer navigation device. Position was confirmed regularly with AP and lateral images on C-arm and with the computer navigation device at the appropriate levels bilaterally at L2 L3 L4 and L5. I was able to establish the trocar into the pedicle appropriately into the posterior aspect of the vertebral body bilaterally at the appropriate levels. This was done at each of the pedicle positions and each of the vertebrae. At the superior vertebrae of L2 on the right I was able to take approximately 25 mL of bone aspiration for use later in the case to supplement the allograft and autograft bone. I was able place the guidewire into the trocar and into the vertebral body appropriately under C-arm guidance. Dissection was taken down over the wire to the appropriate starting position for the screw placed. The appropriate length screw was chosen, threaded over the guidewire and screwed appropriately into the pedicle and vertebral body under C- arm guidance in excellent alignment and position with good bony purchase. This is done at each of the screw sites at the appropriate levels.. With the screws intact I extended the incision to connect the screw hole sites on the left side where the imaging showed or severe stenosis. I dissected down to establish access over the pars and lamina to the base of the spinous process. I was able to expose the facet joint. The capsule the facet was taken down and showed some facet arthrosis at the joint. I was able to use a combination of curettes and Kerrison rongeurs and a high-speed drill to take down the facet joint and do a facetectomy. I was able get excellent foraminal decompression and central decompression with undermining across midline to perform a laminectomy centrally and contralaterally. As able get good central decompression. The ligamentum flavum was taken down to further decompress centrally and at bilateral neural foramen. I was able to expose the disc space and visualize the traversing nerve root. Note was made of some disc protrusion and disc herniation that was abutting the traversing nerve root at the level causing further compression of the nerve root. I was able to establish a manuel lotomy at the appropriate level protecting soft tissue and neural structures. Note was made of some disc desiccation at the disc. I performed a complete discectomy with accommodation of curettes and rasps and scrapers. I was able get good endplate preparation at the disc space. I sized for the appropriate size interbody spacer protecting the soft tissue and neural structures. The wound was copiously irrigated and suctioned dry. There is no evidence of any dural tear or leak. Was done first at L4 5 than at L3 4 and then L2 3 I was able to pack the disc space with local autogenous bone graft as well as a small amount of bone graft which was also placed into the interbody cage itself. Protecting the soft tissue structures and neural structures I was able place the interbody cage in good alignment and good position with good fit and fill at the interbody space. Position was confirmed with C-arm guidance. This is done at each level starting at L4 5 and L3 4 then L2-3 Good hemostasis maintained. There is no evidence of any dural tear or leak. The wound was irrigated and suctioned dry. With the hardware intact, intraoperative C-arm imaging was again taken which showed good alignment and position of the hardware at the appropriate levels L2 to L5. We were then able to measure, contour and place the rods and appropriate hardware bilaterally. I was able to get good reduction of the scoliotic curvature. I was able to place capcrews, tighten them down, and torque them with the torque screwdriver appropriately. With this intact I was able to place the local autogenous bone graft with additional bone graft enhancer as necessary into the posterior lateral gutters over the decorticated transverse processes and facet joints on the contralateral side. The remainder of the bone graft was placed over the facet joint on the contralateral side after taking down the facet joint capsule. With the bone graft intact, a stable construct, and good decompression at the appropriate levels, we were able to proceed with closure. Good hemostasis was maintained. There is no evidence of dural tear or leak. The fascia was closed for a watertight closure. he subcuticular tissue was closed with absorbable suture. The wound was cleaned and dried and dressed with the appropriate dressing. The drapes were broken down. The patient was gently rolled back onto their hospital bed being careful to maintain their cervical spine and good neutral alignment and position. They were woken up by anesthesia, extubated, and brought to the recovery room in good stable condition. The patient will be admitted to the hospital for appropriate postoperative care, medical management and monitoring. We will continue to follow them closely about the postoperative course.
[2021-08-25] MEDS: HYDROmorphone 0.5 MG/0.5 ML SYRINGE IVP PRN ×2 (15:59→16:07)
[2021-08-25] MEDS: ALBUTEROL NEBULIZED 2.5 MG/3 ML INHALATION SCH (20:24)
[2021-08-25] MEDS: HYDROmorphone 1 MG/ML 1 ML SYRINGE IVP PRN (20:43)
[2021-08-25] MEDS: FAMOTIDINE 20 MG TAB PO SCH (20:44)
[2021-08-25] MEDS: SODIUM CHLORIDE 0.9% 1,000 ML IV SCH (20:45)
[2021-08-26] MEDS: HYDROmorphone 1 MG/ML 1 ML SYRINGE IVP PRN ×2 (01:27→05:37)
[2021-08-26] MEDS: LACTATED RINGERS 1,000 ML IV SCH ×2 (02:55→23:12)
[2021-08-26] MEDS: SODIUM CHLORIDE 0.9% 1,000 ML IV SCH ×2 (05:49→20:26)
[2021-08-26 06:51] LABS: Basophils % (A) 0 %; Eosinophils # (A) 0.1 k/uL (0-0.7); Eosinophils % (A) 0 %; HCT 39.5 % (39.0-53.0); HGB 12.1 gm/dL (13.0-17.5); Hypochromasia Marked; Lymphocytes # (A) 0.9 k/uL (1.0-4.8); Lymphocytes % (A) 8 %; MCH 32.2 pg (25.0-35.0); MCHC 30.6 g/dL (31.0-37.0); MCV 105.4 fL (80.0-100.0); Macrocytosis Slight; Mean Platelet Volume 7.2; Monocytes # (A) 0.6 k/uL (0-1.0); Monocytes % (A) 5 %; Neutrophils # (A) 9.6 k/uL (1.3-7.7); Neutrophils % (A) 86 %; Platelet Count 216 k/uL (150-450); RBC 3.75 m/uL (4.30-5.90); WBC 11.1 k/uL (3.8-10.6)
[2021-08-26] MEDS: ALBUTEROL NEBULIZED 2.5 MG/3 ML INHALATION SCH (07:37)
[2021-08-26] MEDS: ONDANSETRON 4 MG/2 ML VIAL IVP PRN ×2 (09:05→16:38)
[2021-08-26] MEDS: LOSARTAN 50 MG TAB PO SCH (09:09)
[2021-08-26] MEDS: SENNOSIDES-DOCUSATE SODIUM 1 EACH TAB PO SCH (09:10)
--- NOTE | 2021-08-26 10:34 | P.PN ---
Progress Note - Text Progress Note Date: 08/26/21 Postoperative day #1 Patient is seen and examined today at bedside. The patient has some pain around the surgical site as expected. Pain is not being well controlled with medication thus far. He has been having nausea this morning and he has just received some Zofran for this. He was not able to sit up in bed or get up with therapy at this morning. He says his legs are doing okay but any movement hurts his back. He says he is not having abdominal pain or shortness of breath he just feels nauseous. Physical Exam T-max of 100.1 with stable vital signs Abdomen is soft nontender. Chest has good excursion deep and space expiration his abdomen is nondistended. It is soft. It is nontender The incision site is clean dry and intact. No erythema there is no purulence. Extremities have not had neurologic change from prior to surgery. He has sustained dorsal flexion plantar flexion and EHL intact. His thighs and calves are soft nontender Calves and thighs were soft nontender without evidence of DVT. Assessment/Plan Postoperative day 1 status post minimally invasive decompression fusion L2 3 L3 4 L4 5 for his degenerative scoliosis with spinal stenosis and lower extremity radiculopathy and back pain Patient is progressing slowly as expected from the surgery. We will continue to work on his pain control with IV and oral medications. He just received some Zofran hopefully that'll alleviate some of his nausea that. He able to hold food and fluids down. He has a low-grade temperature hand slightly with atelectasis, and he was started on his incentive spirometry was encouraged to that today. Medicine is counseled that for her medical management and will see him also today We will continue to increase the patient's mobilization with therapy. Hopefully we will be able to increase his mobilization with therapy. We will likely begin hospital 2 or 3 days We will continue pain control with oral or IV medications. We'll continue to follow patient closely.
[2021-08-26 11:26] LABS: African American GFR (CKD) 110.3 (60.0-200.0); Anion Gap 15.3 mmol/L (10.00-18.00); BUN/Creat Ratio 13.56 Ratio (12.00-20.00); Blood Urea Nitrogen 12.2 mg/dL (9.0-27.0); Calcium 8.3 mg/dL (8.7-10.3); Carbon Dioxide 14.7 mmol/L (20.0-27.5); Non-African American GFR(CKD) 95.1 (60.0-200.0)
[2021-08-26] MEDS ORDERED: HYDROcodone/APAP 5-325MG 1 EACH TAB PO PRN (11:46)
[2021-08-26] MEDS ORDERED: HYDROmorphone 0.5 MG/0.5 ML SYRINGE IVP PRN (11:48)
[2021-08-26] MEDS ORDERED: HYDROmorphone 1 MG/ML 1 ML SYRINGE IVP PRN (11:48)
[2021-08-26] MEDS ORDERED: IPRATROPIUM-ALBUTEROL 3 ML NEB INHALATION PRN (11:50)
[2021-08-26] MEDS: NICOTINE 21MG/24HR PATCH TRANSDERM SCH (12:12)
[2021-08-26] MEDS: oxyCODONE-APAP 10-325MG 1 EACH TAB PO PRN ×3 (12:12→21:10)
--- NOTE | 2021-08-26 12:22 | XR ---
EXAMINATION TYPE: XR chest 1V portable DATE OF EXAM: 08/26/2021 COMPARISON: 08/13/2021 HISTORY: Cough and low-grade fever TECHNIQUE: Single frontal view of the chest is obtained. FINDINGS: There is no focal air space opacity, pleural effusion, or pneumothorax seen. No overt fail ure. The osseous structures are intact. Arthropathy of the shoulders. Heart size normal. IMPRESSION: No acute process.
--- NOTE | 2021-08-26 14:14 | P.CONS ---
History of Present Illness - Reason for Consult Consult date: 08/26/21 - History of Present Illness HISTORY OF PRESENT ILLNESS This 55-year-old male patient of Dr. Gaviria with past medical history of mild persistent asthma, gastroesophageal reflux disease, osteoarthritis, remote tobacco use and dependence, daily alcohol use. Has history of degenerative scoliosis and spinal stenosis status post laminectomy and decompression L2-3, L3-4 and L4-5, 08/25. The patient has had no postop complications. He is complaining of severe pain in his back and we will make changes to his pain medications. Patient states that he quit 3-4 years ago and utilizing a nicotine patch. He has a nebulizer inhaler home these been using for the past year. Regarding alcohol intake, patient drinks 2 beers every night. He states his last bowel movement was yesterday morning before coming in for surgery. He had a stress test done 2 years ago which he states was normal. A shunt had a low- grade temperature this morning of 100.1, tachycardic at 117, blood pressure stable 132/76 and pulse ox 92% on room air. REVIEW OF SYSTEMS Constitutional: No fever, no chills, no night sweats. No weight change. No weakness, fatigue or lethargy. No daytime sleepiness. EENT: No headache. No blurred vision or double vision, no loss of vision. No loss of Hearing, no ringing in the ears, no dizziness. No nasal drainage or congestion. No epistaxis. No sore throat. Lungs: No shortness of breath, cough, no sputum production. No wheezing. Cardiovascular: No chest pain, no lower extremity edema. No palpitations. No paroxysmal nocturnal dyspnea. No orthopnea. No lightheadedness or dizziness. No syncopal episodes. Abdominal: No abdominal pain. No nausea, vomiting. No diarrhea. No constipation. No bloody or tarry stools. No loss of appetite. Genitourinary: No dysuria, increased frequency, urgency. No urinary retention. Musculoskeletal: No myalgias. No muscle weakness, no gait dysfunction, no frequent falls. Severe back pain. No neck pain. Integumentary: No wounds, no lesions. No rash or pruritus. No unusual bruising. No change in hair or nails. Neurologic: No aphasia. No facial droop. No change in mentation. No head injury. No headache. No paralysis. No paresthesia. Psychiatric: No depression. No anxiety. No mood swings. Endocrine: No abnormal blood sugars. No weight change. No excessive sweating or thirst. No cold intolerance. SOCIAL HISTORY Patient is a smoker of greater than one pack per day for 40 years and quit 3-4 years ago but is still using a nicotine patch. He drinks 2 beers per night. He denies any marijuana use or street drug use. He lives at home alone. Patient was utilizing cane for surgery and had been for a few years. Patient has a nebulizer at home. FAMILY HISTORY Mother is with history of coronary artery disease and stents. Father is . Patient has 2 brothers and 1 sister with no major medical problems. Patient is one son with no major medical problems.. PHYSICAL EXAMINATION Gen: This is a 55-year-old male patient. He is sitting in her recliner and appears to be somewhat uncomfortable secondary to pain. HEENT: Head is atraumatic, normocephalic. Pupils equal, round. Sclerae is anicteric. NECK: Supple. No JVD. No lymphadenopathy. No thyromegaly. LUNGS: Clear to auscultation. No wheezes or rhonchi. No intercostal retractions. HEART: Regular rate and rhythm. No murmur. ABDOMEN: Soft. Bowel sounds are present. No masses. No tenderness. EXTREMITIES: No pedal edema. No calf tenderness. NEUROLOGICAL: Patient is awake, alert and oriented x3. Cranial nerves 2 through 12 are grossly intact. ASSESSMENT AND PLAN Degenerative scoliosis and spinal stenosis status post surgical intervention, 08/25. Patient is complaining of severe pain. Dilaudid changed to every 3 hours and [place] changed to Percocet. Mild persistent asthma. Patient will be started on DuoNeb treatments 3 times daily and as needed. Daily alcohol intake. Monitor patient closely for DTs. Gastroesophageal reflux disease. Continue Pepcid. History of tobacco use and dependence. Nicotine patch continued. COVID-19 testing negative. Patient has been hospitalized during a pandemic. DISCHARGE PLAN Home. Impression and plan of care have been directed as dictated by the signing physician. Khalida Diaz nurse practitioner acting as scribe for signing physici an. Past Medical History Past Medical History: Asthma, GERD/Reflux, Osteoarthritis (OA) Additional Past Medical History / Comment(s): DOES NOT TAKE FLU OR PNEUMONIA VACCINES. History of Any Multi-Drug Resistant Organisms: None Reported Past Surgical History: Joint Replacement, Orthopedic Surgery Additional Past Surgical History / Comment(s): BILATERAL CARPAL TUNNEL. COLONSCOPY Past Anesthesia/Blood Transfusion Reactions: No Reported Reaction Past Psychological History: No Psychological Hx Reported Smoking Status: Current every day smoker Past Alcohol Use History: Occasional Additional Past Alcohol Use History / Comment(s): 1PPD, FOR 30 YRS. No illicit drug use, no alcohol abuse. He lives at home with his . Past Drug Use History: None Reported - Past Family History Mother Family Medical History: No Reported History Father Family Medical History: No Reported History Medications and Allergies Home Medications Medication Instructions Recorded Confirmed Type Albuterol Inhaler (Mhu) [Ventolin 1 puff INHALATION RT-DAILY PRN 11/27/18 08/25/21 History Hfa Inhaler (Mhu)] Ibuprofen [Motrin Ib] 800 mg PO TID PRN 11/27/18 08/25/21 History Acetaminophen Tab [Tylenol] 1,000 mg PO Q8HR PRN 12/04/18 08/25/21 History Albuterol Nebulized [Ventolin 2.5 mg INHALATION BID 08/23/21 08/25/21 History Nebulized] Famotidine [Pepcid] 40 mg PO HS 08/23/21 08/25/21 History Olmesartan Medoxomil [Benicar] 40 mg PO QAM 08/23/21 08/25/21 History Nicotine 21Mg/24Hr Patch [Habitrol] 21 mg TRANSDERM DAILY 08/25/21 08/25/21 History Allergies Allergy/AdvReac Type Severity Reaction Status Date / Time No Known Allergies Allergy Verified 08/25/21 08:44 Physical Exam Vitals: Vital Signs Temp Pulse Pulse Pulse Resp BP Pulse Ox 08/26/21 09:31 100.1 F H 117 H 18 132/76 92 L 08/26/21 07:48 88 08/26/21 07:38 88 08/26/21 05:00 97.5 F L 108 H 16 128/80 92 L 08/25/21 20:43 92 08/25/21 20:26 92 08/25/21 20:00 97.3 F L 92 16 135/86 94 L 08/25/21 18:04 87 114/72 08/25/21 17:31 97.8 F 80 17 118/78 08/25/21 16:38 94 16 123/66 94 L 08/25/21 16:23 95 16 135/75 97 08/25/21 16:08 94 16 149/85 98 08/25/21 15:53 100 16 153/86 98 08/25/21 15:38 97.4 F L 115 H 22 156/89 100 Intake and Output 08/25/21 08/26/21 08/26/21 22:59 06:59 14:59 Intake Total 300 950 Output Total 775 1500 Balance -475 -550 Intake: IV 300 Intake, IV Titration 950 Amount Sodium Chloride 0.9% 1, 900 000 ml @ 75 mls/hr IV . [id number] NELI Rx#:[id number] ceFAZolin 2 gm In Sodium 50 Chloride 0.9% 50 ml @ 100 mls/hr IVPB Q8H NELI Rx#: [id number] Output: Urine 450 1500 Estimated Blood Loss 325 Other: Voiding Method Indwelling Catheter # Emeses 2 Weight 92.53 kg Results CBC & Chem 7: 08/26/21 06:00 08/26/21 06:00 Labs: Abnormal Lab Results - Last 24 Hours (Table) 08/26/21 08/26/21 Range/Units 06:00 06:00 WBC 11.1 H (3.8-10.6) k/uL RBC 3.75 L (4.30-5.90) m/uL Hgb 12.1 L (13.0-17.5) gm/dL MCV 105.4 H (80.0-100.0) fL MCHC 30.6 L (31.0-37.0) g/dL Neutrophils # 9.6 H (1.3-7.7) k/uL Lymphocytes # 0.9 L (1.0-4.8) k/uL Sodium 133 L (135-145) mmol/L Carbon Dioxide 14.7 L (20.0-27.5) mmol/L Glucose 111 H (70-110) mg/dL Calcium 8.3 L (8.7-10.3) mg/dL
[2021-08-26] MEDS: IPRATROPIUM-ALBUTEROL 3 ML NEB INHALATION SCH ×2 (15:41→19:28)
[2021-08-26] MEDS ORDERED: CALCIUM CARBONATE 500 MG CHEWABLE PO PRN (18:09)
[2021-08-26] MEDS: FAMOTIDINE 20 MG TAB PO SCH (20:26)
[2021-08-27] MEDS: oxyCODONE-APAP 10-325MG 1 EACH TAB PO PRN ×6 (01:05→21:37)
[2021-08-27] MEDS: IPRATROPIUM-ALBUTEROL 3 ML NEB INHALATION SCH ×3 (08:40→20:06)
[2021-08-27] MEDS: SENNOSIDES-DOCUSATE SODIUM 1 EACH TAB PO SCH (09:10)
[2021-08-27] MEDS: LOSARTAN 50 MG TAB PO SCH (09:10)
[2021-08-27] MEDS: SODIUM CHLORIDE 0.9% 1,000 ML IV SCH (11:00)
[2021-08-27] MEDS: NICOTINE 21MG/24HR PATCH TRANSDERM SCH (11:00)
--- NOTE | 2021-08-27 12:20 | P.PN ---
Progress Note - Text Progress Note Date: 08/27/21 Orthopedic Spine History of present illness: Patient is a pleasant 55-year-old male who is seen and examined at the bedside following posterior lateral decompression and fusion performed Monday. Patient states they are doing well post operatively. He's had significant improvement of symptoms as compared to yesterday. He has been able to ambulate to the room at work with physical therapy. He does continue significant pain in his lumbar spine. He states his pain is currently being controlled oral medications. Currently does not complain of nausea, vomiting, fever, or chills. Patient states pain has been adequately controlled. Currently denies any lower extremity weakness or radiculopathy bilaterally. Patient is eating and voiding freely without difficulty. Physical Exam Lumbar Fusion: Status post surgical day number 2 Patient is awake, alert, and oriented 3 Vital signs stable Good chest excursion with deep inspiration and expiration Dorsiflexion, plantarflexion, and extensor hallucis longus positive sustained b ilaterally No signs or symptoms of DVT; no calf pain; pneumatic cuffs intact bilateral lower extremities Dressings are removed during physical examination; no erythema, purulence, or signs of infection over the surgical site; no active drainage Dressing is reapplied with nonstick Telfa and Tegaderm over the surgical sites Neurovascularly intact bilaterally lower extremities Assessment: Status post L2-3, L3-4, and L4-5 minimally invasive posterior lateral decompression and fusion with transforaminal lumbar interbody fusion Low back pain Lumbar spondylolisthesis Lumbar spinal stenosis Lower extremity radiculopathy Lumbar degenerative disc disease Neurogenic claudication GERD Hypertension History of daily alcohol use History of tobacco use Plan: 1. Ambulate as tolerated; work with Physical Therapy to increase mobilization; he may use a walker to aid in ambulation; prescription for a walker is signed and provided to case management to obtain a walker for the patient to be used during his admission to the hospital and also at home following discharge 2. Continue pain control with oral medications MAPS has been reviewed today, , with an Overall Overdose Risk Score of . An "Opiod Start Talking" Form has been signed and placed in the patient's chart. A prescription has been written for oxycodone 10 mg/325 mg, take 1 tab every 6 hours as needed for pain, dispensed #28. Prescription is sent to the [facility] pharmacy located within the [facility]. Patient should avoid anti-inflammatory medication of the next 6 weeks postoperatively. 3. Dressings have been changed to nonstick Telfa and Tegaderm; patient may shower with dressings intact 4. Medical management can continue to manage patient for patient's other medical diagnoses 5. We will continue to follow the patient closely; depending on the patient's progress, we may plan for discharge home as early as tomorrow, 08/28/2021 6. Patient can follow-up with Willie Montez PA-C or Dr. Maik Funes at [facility] in 2-3 weeks following discharge
[2021-08-27 12:51] LABS: African American GFR (CKD) >90 (>60 ml/min/1.73 sqM); Anion Gap 6 mmol/L; Blood Urea Nitrogen 9 mg/dL (9-20); Calcium 8.8 mg/dL (8.4-10.2); Carbon Dioxide 23 mmol/L (22-30); Chloride 97 mmol/L (98-107); Glucose 107 mg/dL (74-99); Non-African American GFR(CKD) >90 (>60 ml/min/1.73 sqM); Sodium 126 mmol/L (137-145)
--- NOTE | 2021-08-27 16:46 | P.PN ---
Subjective Progress Note Date: 08/27/21 HISTORY OF PRESENT ILLNESS This 55-year-old male patient of Dr. 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 Has history of degenerative scoliosis and spinal stenosis status post laminectomy and decompression L2-3, L3-4 and L4-5, 08/25. The patient has had no postop complications. He is complaining of severe pain in his back and we will make changes to his pain medications. Patient states that he quit 3-4 years ago and utilizing a nicotine patch. He has a nebulizer inhaler home these been using for the past year. Regarding alcohol intake, patient drinks 2 beers every night. He states his last bowel movement was yesterday morning before coming in for surgery. He had a stress test done 2 years ago which he states was normal. Patient had a low- grade temperature this morning of 100.1, tachycardic at 117, blood pressure stable 132/76 and pulse ox 92% on room air. 08/27: Patient has been afebrile, heart rate 100 1622, blood pressure 149/80, pulse ox 93% on room air. Chest x-ray shows no acute process. Patient is reaching 1000 on incentive spirometry. Patient states that his pain is much improved from yesterday. He states he is able to walk today. He denies having any chest pain, shortness of breath, no nausea or vomiting. LAD is for [employer] tomorrow. REVIEW OF SYSTEMS Constitutional: No fever, no chills, no night sweats. No weight change. No weakness, fatigue or lethargy. No daytime sleepiness. EENT: No headache. No blurred vision or double vision, no loss of vision. No loss of Hearing, no ringing in the ears, no dizziness. No nasal drainage or congestion. No epistaxis. No sore throat. Lungs: No shortness of breath, cough, no sputum production. No wheezing. Cardiovascular: No chest pain, no lower extremity edema. No palpitations. No paroxysmal nocturnal dyspnea. No orthopnea. No lightheadedness or dizziness. No syncopal episodes. Abdominal: No abdominal pain. No nausea, vomiting. No diarrhea. No constipation. No bloody or tarry stools. No loss of appetite. Genitourinary: No dysuria, increased frequency, urgency. No urinary retention. Musculoskeletal: No myalgias. No muscle weakness, no gait dysfunction, no frequent falls. Improved back pain. No neck pain. Integumentary: No wounds, no lesions. No rash or pruritus. No unusual bruising. No change in hair or nails. Neurologic: No aphasia. No facial droop. No change in mentation. No head injury. No headache. No paralysis. No paresthesia. Psychiatric: No depression. No anxiety. No mood swings. Endocrine: No abnormal blood sugars. No weight change. No excessive sweating or thirst. No cold intolerance. PHYSICAL EXAMINATION Gen: This is a 55-year-old male patient. He is sitting in bed and appears to be comfortable and in no acute distress. HEENT: Head is atraumatic, normocephalic. Pupils equal, round. Sclerae is anicteric. NECK: Supple. No JVD. No lymphadenopathy. No thyromegaly. LUNGS: Clear to auscultation. No wheezes or rhonchi. No intercostal retractions. HEART: Regular rate and rhythm. No murmur. ABDOMEN: Soft. Bowel sounds are present. No masses. No tenderness. EXTREMITIES: No pedal edema. No calf tenderness. NEUROLOGICAL: Patient is awake, alert and oriented x3. Cranial nerves 2 through 12 are grossly intact. ASSESSMENT AND PLAN Degenerative scoliosis and spinal stenosis status post surgical intervention, 08/25. Pain is improved. Continue therapies per orthopedics, Dilaudid or Percocet for pain Mild persistent asthma. Patient will be started on DuoNeb treatments 3 times daily and as needed. Daily alcohol intake. Monitor patient closely for DTs. Gastroesophageal reflux disease. Continue Pepcid. History of tobacco use and dependence. Nicotine patch continued. COVID-19 testing negative. Patient has been hospitalized during a pandemic. DISCHARGE PLAN Home on Monday. Impression and plan of care have been directed as dictated by the signing physician. Khalida Diaz nurse practitioner acting as scribe for signing physician. Objective - Vital Signs Vital signs: Vital Signs Temp 98.2 F 08/27/21 05:00 Pulse 122 H 08/27/21 09:03 Resp 16 08/27/21 05:00 BP 149/80 08/27/21 09:03 Pulse Ox 93 L 08/27/21 09:03 Intake & Output 08/26/21 08/27/21 08/27/21 18:59 06:59 18:59 Intake Total 600 Output Total 350 Balance 250 Intake: Oral 600 Output: Urine 350 Other: Voiding Method Urinal # Voids 5 # Emeses 2 - Labs CBC & Chem 7: 08/26/21 06:00 08/27/21 12:10 Labs: Abnormal Lab Results - Last 24 Hours (Table) 08/26/21 Range/Units 06:00 Sodium 133 L (135-145) mmol/L Carbon Dioxide 14.7 L (20.0-27.5) mmol/L Glucose 111 H (70-110) mg/dL Calcium 8.3 L (8.7-10.3) mg/dL
[2021-08-27] MEDS: FAMOTIDINE 20 MG TAB PO SCH (21:37)
[2021-08-27 23:41] VITALS: RESP 20
[2021-08-28] MEDS: oxyCODONE-APAP 10-325MG 1 EACH TAB PO PRN ×3 (01:47→10:34)
[2021-08-28 05:53] VITALS: TEMP 98.5
[2021-08-28] MEDS: IPRATROPIUM-ALBUTEROL 3 ML NEB INHALATION SCH (08:03)
[2021-08-28 08:48] VITALS: BP 149/79; PULSE 110
[2021-08-28] MEDS: SENNOSIDES-DOCUSATE SODIUM 1 EACH TAB PO SCH (08:49)
[2021-08-28] MEDS: NICOTINE 21MG/24HR PATCH TRANSDERM SCH (08:49)
[2021-08-28] MEDS: LOSARTAN 50 MG TAB PO SCH (08:49)
--- NOTE | 2021-08-28 10:32 | P.DS ---
Providers Date of admission: 08/26/21 02:30 Attending physician: Umesh Funes Consults: 08/25/21 15:31 Consult Physician Routine Consulting Provider: Krishna Gaviria Consult Reason/Comments: Medical management Do you want consulting provider notified?: Yes Primary care physician: Krishna Gaviria Va Hospital Course: The patient presented on the day of admission as per their operative note. He underwent lumbar decompression and fusion for his degenerative scoliosis with spinal stenosis degenerative disc disease and lower extremity radiculopathy and pain. The patient feels that he is making good progress postoperatively. He has made substantial improvement in his mobility. He is tolerating his diet. He is voiding freely and has had a bowel movement. He feels his pain is controlled with oral medications and he is happy with his mobilization. He feels his legs are making good improvement surgery. Physical Exam The incision site is clean dry and intact. There is no erythema no drainage. There is no purulence no evidence of infection. There is no active drainage. There is some serous fluid on his dressings and I was able to change that but there is no active drainage or erythema at the sites. There is no evidence of any infection. Abdomen soft and nontender. Chest has good excursion with deep inspiration and expiration. The patient has active and passive range of motion intact at the upper and lower extremities. There is no acute change in neurologic status. He has sustained dorsal flexion by flexion and EHL intact. Hospital Course Postoperative day #3 status post minimally invasive decompression and fusion L2 3 L3 4 L4 5 for his degenerative scoliosis with spinal stenosis lower extremity radiculopathy. The patient has been making good progress postoperatively. They have completed the prophylactic antibiotics without any signs or symptoms of infection. The patient has been able to advance their diet, and is tolerating diet adequately. The pain was initially controlled with IV medications and is now controlled appropriately with oral medications. The patient has been able to increase their mobilization. He is able get in and out of bed on his own. He feels his pain is controlled well with his oral medications. The patient has progressed appropriately. I think they are in good stable condition for discharge today. They will be sent home with appropriate prescriptions. I answered their questions to the best of my ability in a language that they can understand and they are agreeable with the plan. We discussed his work status and he'll need to be off work for likely 3 months postoperatively we'll Give him appropriate paperwork their office. They will follow up as directed in approximately 2 weeks or sooner if he is having problems. Patient Condition at Discharge: Good Plan - Discharge Summary Discharge Rx Participant: Yes New Discharge Prescriptions: New oxyCODONE-APAP 10-325MG [Percocet 10-325 mg] 1 tab PO Q6HR PRN 7 Days #28 tab PRN Reason: Pain Sennosides-Docusate Sodium [Senokot-S] 1 each PO DAILY tab Continue Ibuprofen [Motrin Ib] 800 mg PO TID PRN PRN Reason: Pain Albuterol Inhaler (Mhu) [Ventolin Hfa Inhaler (Mhu)] 1 puff INHALATION RT- DAILY PRN PRN Reason: Shortness Of Breath Or Wheezing Acetaminophen Tab [Tylenol] 1,000 mg PO Q8HR PRN PRN Reason: Pain Albuterol Nebulized [Ventolin Nebulized] 2.5 mg INHALATION BID Famotidine [Pepcid] 40 mg PO HS Olmesartan Medoxomil [Benicar] 40 mg PO QAM Nicotine 21Mg/24Hr Patch [Habitrol] 21 mg TRANSDERM DAILY Discharge Medication List Albuterol Inhaler (Mhu) [Ventolin Hfa Inhaler (Mhu)] 1 puff INHALATION RT-DAILY PRN 11/27/18 [History] Ibuprofen [Motrin Ib] 800 mg PO TID PRN 11/27/18 [History] Acetaminophen Tab [Tylenol] 1,000 mg PO Q8HR PRN 12/04/18 [History] Albuterol Nebulized [Ventolin Nebulized] 2.5 mg INHALATION BID 08/23/21 [History] Famotidine [Pepcid] 40 mg PO HS 08/23/21 [History] Olmesartan Medoxomil [Benicar] 40 mg PO QAM 08/23/21 [History] Nicotine 21Mg/24Hr Patch [Habitrol] 21 mg TRANSDERM DAILY 08/25/21 [History] oxyCODONE-APAP 10-325MG [Percocet 10-325 mg] 1 tab PO Q6HR PRN 7 Days #28 tab 08/27/21 [Rx] Sennosides-Docusate Sodium [Senokot-S] 1 each PO DAILY tab 08/28/21 [Rx] Follow up Appointment(s)/Referral(s): [facility] [NON-STAFF] - 1 Week Willie Montez PAC [PHYSICIAN HORSE DOCTOR] - 2 Weeks (Patient may follow-up with Willie Montez PA-C or Dr. Maik Funes at [facility] in 2-3 weeks following discharge. ) Krishna Gaviria MD [Primary Care Provider] - 1 Week Activity/Diet/Wound Care/Special Instructions: 1. Patient may shower with Tegaderm dressing intact. 2. Patient may remove Tegaderm dressing in 3 days and shower without a dressing at that time. 3. Patient should refrain from driving until at least after their first follow- up appointment in the office. 4. Patient should avoid excessive bending, twisting, lifting; avoid overhead lifting; no lifting greater than 10 pounds 5. Patient may use walker to aid in ambulation as needed 6. Take medications as prescribed 7. Do not soak in tub Discharge Disposition: HOME SELF-CARE
--- NOTE | 2021-08-28 11:27 | P.PN ---
Subjective Progress Note Date: 08/28/21 HISTORY OF PRESENT ILLNESS This 55-year-old male patient of Dr. Gaviria with past medical history of mild persistent asthma, gastroesophageal reflux disease, osteoarthritis, remote tobac co use and dependence, daily alcohol use. Has history of degenerative scoliosis and spinal stenosis status post laminectomy and decompression L2-3, L3-4 and L4- 5, 08/25. The patient has had no postop complications. He is complaining of severe pain in his back and we will make changes to his pain medications. Patient states that he quit 3-4 years ago and utilizing a nicotine patch. He has a nebulizer inhaler home these been using for the past year. Regarding alcohol intake, patient drinks 2 beers every night. He states his last bowel movement was yesterday morning before coming in for surgery. He had a stress test done 2 years ago which he states was normal. Patient had a low-grade te mperature this morning of 100.1, tachycardic at 117, blood pressure stable 132/76 and pulse ox 92% on room air. 08/27: Patient has been afebrile, heart rate 100 1622, blood pressure 149/80, pulse ox 93% on room air. Chest x-ray shows no acute process. Patient is reaching 1000 on incentive spirometry. Patient states that his pain is much improved from yesterday. He states he is able to walk today. He denies having any chest pain, shortness of breath, no nausea or vomiting. LAD is for disch arge tomorrow. 08/28: Patient is found resting comfortably in bed in no acute distress. Patient states that he has help at home. Continuing to utilize his incentive spirometer reaching 1200. Patient states that his pain is improved compared to yesterday. He was able to walk today. Denies any shortness of breath does have a cough which is more than likely related to not smoking while in the hospital. Denies any nausea or vomiting. Patient is having bowel movements that are soft and formed. Plan for discharge today. Discussed with patient the importance of refraining from EtOH intake. REVIEW OF SYSTEMS Constitutional: No fever, no chills, no night sweats. No weight change. No weakness, fatigue or lethargy. No daytime sleepiness. EENT: No headache. No blurred vision or double vision, no loss of vision. No loss of Hearing, no ringing in the ears, no dizziness. No nasal drainage or congestion. No epistaxis. No sore throat. Lungs: No shortness of breath, cough, no sputum production. No wheezing. Cardiovascular: No chest pain, no lower extremity edema. No palpitations. No paroxysmal nocturnal dyspnea. No orthopnea. No lightheadedness or dizziness. No syncopal episodes. Abdominal: No abdominal pain. No nausea, vomiting. No diarrhea. No constipation. No bloody or tarry stools. No loss of appetite. Genitourinary: No dysuria, increased frequency, urgency. No urinary retention. Musculoskeletal: No myalgias. No muscle weakness, no gait dysfunction, no frequent falls. Improved back pain. No neck pain. Integumentary: No wounds, no lesions. No rash or pruritus. No unusual bruising. No change in hair or nails. Neurologic: No aphasia. No facial droop. No change in mentation. No head injury. No headache. No paralysis. No paresthesia. Psychiatric: No depression. No anxiety. No mood swings. Endocrine: No abnormal blood sugars. No weight change. No excessive sweating or thirst. No cold intolerance. PHYSICAL EXAMINATION Gen: This is a 55-year-old male patient. He is sitting in bed and appears to be comfortable and in no acute distress. HEENT: Head is atraumatic, normocephalic. Pupils equal, round. Sclerae is anicteric. NECK: Supple. No JVD. No lymphadenopathy. No thyromegaly. LUNGS: Clear to auscultation. No wheezes or rhonchi. No intercostal retractions. HEART: Regular rate and rhythm. No murmur. ABDOMEN: Soft. Bowel sounds are present. No masses. No tenderness. EXTREMITIES: No pedal edema. No calf tenderness. NEUROLOGICAL: Patient is awake, alert and oriented x3. Cranial nerves 2 through 12 are grossly intact. ASSESSMENT AND PLAN 1. Degenerative scoliosis and spinal stenosis status post surgical intervention, 08/25. Pain is improved. Continue therapies per orthopedics, Dilaudid or Percocet for pain 2. Mild persistent asthma. Patient will be started on DuoNeb treatments 3 times daily and as needed. 3. Daily alcohol intake. Monitor patient closely for DTs. 4. Gastroesophageal reflux disease. Continue Pepcid. 5. History of tobacco use and dependence. Nicotine patch continued. 6. COVID-19 testing negative. Patient has been hospitalized during a pandemic. DISCHARGE PLAN Home on Monday. Impression and plan of care have been directed as dictated by the signing physician. Whit Miguel nurse practitioner acting as scribe for signing physician. Objective - Vital Signs Vital signs: Vital Signs Temp 98.5 F 08/28/21 05:00 Pulse 110 H 08/28/21 08:47 Resp 20 08/28/21 05:00 BP 149/79 08/28/21 08:47 Pulse Ox 91 L 08/28/21 08:47 Intake & Output 08/27/21 08/28/21 08/28/21 18:59 06:59 18:59 Intake Total 150 200 Output Total 550 700 Balance -400 -500 Intake: Intake, IV Titration 150 Amount Sodium Chloride 0.9% 1, 150 000 ml @ 75 mls/hr IV . [id number] [facility] Rx#:[id number] Oral 200 Output: Urine 550 700 Other: Voiding Method Urinal Urinal # Voids 1 # Bowel Movements 1 - Labs CBC & Chem 7: 08/26/21 06:00 08/27/21 12:10 Labs: Abnormal Lab Results - Last 24 Hours (Table) 08/27/21 Range/Units 12:10 Sodium 126 L (137-145) mmol/L Chloride 97 L (98-107) mmol/L Glucose 107 H (74-99) mg/dL
== END 2021-08-28 11:35 | disposition home or self-care (01) ==
LOC: OR 07:44 → 5NMEDONC 15:41 → OR 08-26 02:30 → 5NMEDONC 08-26 23:29
PROVIDERS: ADMIT Orthopaedic Surgery Orthopaedic Surgery of the Spine; ATTEND Orthopaedic Surgery Orthopaedic Surgery of the Spine
DX: M48.062 Spinal stenosis, lumbar region with neurogenic claudication (principal); M51.16 Intervertebral disc disorders with radiculopathy, lumbar region; M43.16 Spondylolisthesis, lumbar region; M47.26 Other spondylosis with radiculopathy, lumbar region; M41.80 Other forms of scoliosis, site unspecified; J45.30 Mild persistent asthma, uncomplicated; I10 Essential (primary) hypertension; K21.9 Gastro-esophageal reflux disease without esophagitis; F17.210 Nicotine dependence, cigarettes, uncomplicated; H91.90 Unspecified hearing loss, unspecified ear; E66.3 Overweight; Z68.28 Body mass index [BMI] 28.0-28.9, adult; Z20.822 Contact with and (suspected) exposure to COVID-19; Z79.899 Other long term (current) drug therapy; Z96.641 Presence of right artificial hip joint; Z97.3 Presence of spectacles and contact lenses; Z98.890 Other specified postprocedural states
CPT/HCPCS: 22630; 22632 ×2; 22853 ×3; 20930; 20931; 20936; 20937; 22840; 22842; 94640 ×6; 97116; 97530; 97162; 86891; 86900; 86901; 80048 ×2; 85025; 86850; 87635; 72100; 71045; G0378 ×3; P9022; C1713; C1762; S4990 ×2; J2250; J1644; J2710; J0690 ×3; J2405 ×2; J2001; J3010; J1170 ×3; J2370; J0330; J2704

== ENCOUNTER → 2023-01-31 | Outpatient (CLI) | payer BC ==
[2023-01-31 12:31] LABS: INR 0.9 (<1.2); Partial Thromboplastin Time 24.3 sec (22.0-30.0); Prothrombin Time 9.8 sec (9.0-12.0)
--- NOTE | 2023-01-31 12:38 | XR ---
EXAMINATION TYPE: XR chest 2V DATE OF EXAM: 01/31/2023 COMPARISON: 08/26/2021 TECHNIQUE: PA and lateral views submitted. HISTORY: Preop FINDINGS: The lungs are clear and there is no pneumothorax, pleural effusion, or focal pneumonia. Heart size normal and no overt failure. Osseous structures demonstrate hypertrophic and degenerative changes of the spine. Chronic deformity of the right clavicle. Hyperinflation suggests COPD. Atherosclerotic ning nge aorta. IMPRESSION: 1. No acute process. Correlate for COPD.
[2023-01-31 16:29] LABS: African American GFR (CKD) 99.6 (60.0-200.0); BUN/Creat Ratio 15.81 Ratio (12.00-20.00); Blood Urea Nitrogen 15.3 mg/dL (9.0-27.0); Calcium 10.3 mg/dL (8.7-10.3); Carbon Dioxide 24.6 mmol/L (20.0-27.5); Chloride 104 mmol/L (96-109); Chol/HDL Ratio 4.65 Ratio; Glucose 106 mg/dL (70-110); LDL Cholesterol,Calculated 87.9 mg/dL (0.0-131.0); Non-African American GFR(CKD) 85.9 (60.0-200.0); Potassium 4.2 mmol/L (3.5-5.5); Sodium 141 mmol/L (135-145)
[2023-01-31 16:30] LABS: Basophils # (A) 0.05 X 10*3/uL (0.00-0.10); Basophils % (A) 0.4 %; Eosinophils # (A) 0.43 X 10*3/uL (0.04-0.35); Eosinophils % (A) 3.6 %; HCT 45.8 % (39.6-50.0); HGB 14.5 g/dL (13.0-17.0); Immature Grans, Automated 0.2 %; Lymphocytes # (A) 2.75 X 10*3/uL (0.90-5.00); Lymphocytes % (A) 22.7 %; MCH 31.3 pg (27.0-32.0); MCHC 31.7 g/dL (32.0-37.0); MCV 98.9 fL (80.0-97.0); Mean Platelet Volume 9.4 fL (9.5-12.2); Monocytes # (A) 0.85 X 10*3/uL (0.20-1.00); NRBC Per 100 WBC 0 /100 WBCS (0.0-0.0); Neutrophils # (A) 7.99 X 10*3/uL (1.80-7.70); Neutrophils % (A) 66.1 %; Platelet Count 275 X 10*3/uL (140-440); RBC 4.63 X 10*6/uL (4.40-5.60); RDW 13.1 % (11.5-14.5)
[2023-01-31 16:57] LABS: Appearance,Urine Clear (Clear); Bilirubin,Urine Negative (Negative); Blood,Urine Negative (Negative); Color,Urine Yellow (Yellow); Ketones,Urine Negative (Negative); Nitrite,Urine Negative (Negative); Specific Gravity,Urine 1.018 (1.001-1.030); Urobilinogen,Urine 0.2 (0.2,1.0)
== END | disposition home or self-care (01) ==
LOC: LABWHC1 10:43
PROVIDERS: ATTEND Orthopaedic Surgery Orthopaedic Surgery of the Spine
DX: Z01.818 Encounter for other preprocedural examination (principal); E78.5 Hyperlipidemia, unspecified; M48.061 Spinal stenosis, lumbar region without neurogenic claudication
CPT/HCPCS: 36415; 71046; 80048; 80061; 81003; 85025; 85610; 85730; 87070

== ENCOUNTER 2023-02-08 06:14 | Inpatient (IN) | payer BC ==
[~2023-02-08 06:14] MED LIST changes: +HYDROmorphone 0.5 MG/0.5 ML SYRINGE IVP PRN; -LIDOCAINE 1% (10MG/ML) FOR IV START INTRADERMA PRN; -MIDAZOLAM 2 MG/2 ML VIAL IV PRN; +ONDANSETRON 4 MG/2 ML VIAL IVP ONE
[2023-02-08] MEDS ORDERED: LIDOCAINE 1% (10MG/ML) FOR IV START INTRADERMA ONE (06:54)
[2023-02-08] MEDS: LACTATED RINGERS 1,000 ML IV SCH (06:54)
[2023-02-08] MEDS ORDERED: HYDROmorphone (PF) 1 MG/ML ONE (07:28)
[2023-02-08] MEDS ORDERED: MIDAZOLAM 2 MG/2 ML VIAL ONE (07:28)
[2023-02-08] MEDS ORDERED: fentaNYL (PF) 50 MCG/ML 2 ML AMP ONE (07:28)
[2023-02-08] MEDS ORDERED: SUCCINYLCHOLINE CHLORIDE 200 MG/10 ML VIAL IV ONE (07:28)
[2023-02-08] MEDS ORDERED: HEPARIN SODIUM,PORCINE 10,000 UNIT/ML 1 ML VIAL ONE (07:28)
[2023-02-08] MEDS ORDERED: KETAMINE 10 MG/ML 20 ML VIAL ONE (07:28)
[2023-02-08] MEDS ORDERED: PROPOFOL 10 MG/ML 20 ML VIAL IV ONE (07:28)
[2023-02-08] MEDS ORDERED: SODIUM CHLORIDE 0.9% IRRIG 1,000 ML BTL IRRIGATION ONE (07:28)
[2023-02-08] MEDS ORDERED: PHENYLEPHRINE-0.9% NACL SYG 1,000 MCG/10 ML SYRINGE ONE (07:28)
[2023-02-08] MEDS ORDERED: LIDOCAINE 0.5%-EPI 1:200,000 50 ML VIAL SQ ONE (08:07)
[2023-02-08] MEDS ORDERED: THROMBIN (BOVINE) 5,000 UNIT VIAL TOPICAL ONE (08:07)
[2023-02-08] MEDS ORDERED: BUPIVACAINE (PF) 0.25% 30 ML VIAL SQ ONE (08:07)
[2023-02-08] MEDS ORDERED: GELATIN SPONGE,ABSORB (LARGE) 1 EACH SPONGE TOPICAL ONE (08:07)
[2023-02-08] MEDS ORDERED: LACTATED RINGERS 1,000 ML IV ONE ×3 (10:00→12:16)
[2023-02-08] MEDS ORDERED: BENZOCAINE/MENTHOL LOZENG 1 EACH LOZENGE MUCOUS MEM PRN (11:21)
[2023-02-08] MEDS ORDERED: HYDROmorphone 0.5 MG/0.5 ML SYRINGE IVP PRN (11:21)
[2023-02-08] MEDS ORDERED: ALBUTEROL NEBULIZED 2.5 MG/3 ML INHALATION PRN (11:22)
[2023-02-08] MEDS ORDERED: ACETAMINOPHEN TAB 500 MG TAB PO PRN (11:22)
[2023-02-08] MEDS ORDERED: oxyCODONE-APAP 10-325MG 1 EACH TAB PO PRN (11:22)
[2023-02-08] MEDS ORDERED: SENNOSIDES-DOCUSATE SODIUM 1 EACH TAB PO PRN (11:22)
--- NOTE | 2023-02-08 11:45 | P.OP ---
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 fusion L2-3 L3 4 L4 5 Low back pain Lower extremity weakness Postoperative Diagnosis: Same with findings of loose screw on the left at L5 Procedure: Revision Laminectomy and decompression L4 5 with revision facetectomy and excision of severe scar tissue Revision Posterior lateral decompression and fusion L4 5 Removal of deep hardware at L2-L3 L4-L5 with removal and exchange of Screws and laura from L2 to L5 Removal of L5 screw on the left with insertion of new larger screw through the same screw hole Removal of deep interbody cage at L4 5 Replacement of new laura L2 to L5 Local autogenous bone grafting Use of Cell Saver Use of bone graft extenders Use of neuro monitoring Surgeon: Dr. Funes Cfd Engineer: Willie Lugo is present throughout the entire the case persistence during positioning, dissection, exposure, visualization, and all crucial elements of the case as well as closure. Anesthesia: General anesthesia per Dr. Young Estimated blood loss: Approximately 200 mL with some given back through Cell Saver Complications: None apparent Components implanted: I removed a 6.5 x 50 mm screw at L5 which was loose and also removed a capstone interbody cage from L4 5. I removed the old laura from L2 to L5 completed a new laura with new Screws from L2 to L5. I placed a new 10.5 x 50 mm screw at L5 Disposition: To recovery room in good stable condition. OPERATIVE INDICATIONS The patient had had a long history of issues in his lumbar spine and in their lower back and lower extremities. The patient had gone through conservative treatment and after failing conservative care and he actually underwent minimally invasive decompression and fusion at L2-3 L3 4 and L4 5 in August 2021. We were able to perform that surgery at the patient's postoperative course initially had some constipation but ultimately went on essentially uneventfully. He continues to make good progress with good relief of his pain in his lower extremity issues. He was actually able to return to work for approximately a year since his surgery. However over the past few months the patient has been having worsening symptoms at his back and particularly at his left lower extremity. The patient was found to have evidence of potential nonunion at L4 5 with displacement hardware and interbody device migrating posteriorly at L4 5 level. The patient was still able to manage with many of his symptoms but was having worsening of his pain and symptoms pathology. On c lose follow-up he was found have further displacement of the interbody device which correlated well with his low back and lower extremity symptoms. The patient has been through conservative treatment. I discussed with the patient that the interbody device did not appear to be healed at the space and was migrating posteriorly causing impingement on his neural structures. It also appeared that there was loosening or nonunion at the L4 5 space creating environment for the interbody device to migrate posteriorly. With his worsening pain and the displacement of the hardware I felt that he could have benefit with removal of the migrating hardware and revision decompression with possible revision fusion at the L4 5 space. We discussed various treatment options including surgery, and the patient wishes to proceed with surgery We discussed the risk, patient's alternatives and benefits of surgery including but not limited to, risk of bleeding risk of infection, risk of dural tear, risk of need for further surgery, risk of decreased, loss of motion, muscle function, malunion nonunion, hardware failure, nerve damage, paralysis, heart attack, blindness and . OPERATIVE SUMMARY After discussing all the risks, patient alternatives and benefits at length, the patient elected to proceed with surgical intervention, signed informed consent, and presented for their procedure. The patient was seen and examined in the preoperative holding area and the surgical site was marked. The patient was given antibiotics and brought to the operating room. The patient was sedated and intubated by anesthesia in standard fashion. The patient was positioned on to the operating room table in a prone position on the appropriate frame which was well-padded and well molded. We were careful to pad any bony prominences and pressure points. We were careful to maintain the patient's cervical spine and good neutral alignment and position throughout. The patient was prepped and draped in a normal standard fashion. An appropriate timeout and keystone protocol performed. We were able to proceed with the surgery. I was able to easily identify the prior incisions with the minimally invasive left-sided approach being targeted for today's exposure. The local wound area was infiltrated with local anesthetic. An incision was made at the left paramedian incision longitudinally over the appropriate levels. Dissection was taken down subcutaneously to the level of the fascia which was split. I was able to split the muscle fibers and exposed the screw heads first at L4 and L5. There is a great deal scar tissue formation at the medial aspect there was very limited bony formation at the posterior lateral gutters. Dissection was taken over the lamina and medially towards the spinous process. It was obvious that there was same amount of scar tissue formation at the intralaminar space. It was very difficult to determine various structures at the area. I was able to evaluate the hardware and it seemed obvious that the L5 screw was loose in its position. I decided through remove the L5 screw. I removed the Screws over the L2 L3 L4 and L5 screw heads and remove the laura. These were checked and found to be in total. The L5 screw was obviously loose and I removed that appropriately and it was found be in total. I checked the remaining screws in L5 to have good stable fixation. The L5 screw hole was palpated have found have good for escobar though it had a halo and [place] we bring within the hole itself. I had to use a larger screw and chose a 10.5 x 50 mm screw. I was able place a 10 5 screw in good alignment good position with good bony purchase. It was stimulated and found to have no evidence of stimulation at 30 mA. The other screws were also checked and found to have no stimulation. At this point I was able to return my attention to the decompression. I used a Karin retractor and was able to revision decompression laminectomy and partial facetectomy. I had to use the neuro monitoring probe at multiple points nurse to help delineate the structures to assure maintenance of the neural structures while removing scar tissue formation. I was eventually able to find the border of the thecal sac. There is no evidence of any dural tear or leak. I was able to utilize C-arm and direct visualization reduction further dissect. Eventually I was able to expose the loose interbody device. It was obviously loose and displaced. There is significant scar tissue around it which was excised appropriately. I was then able to put the appropriate device to capture the in about a device and remove the interbody device with a mallet while protecting the soft tissue structures. The interbody device was found to be in total. There is no evidence of bony union at the interbody space. There is some fibrocartilaginous and scar tissue formation within the interbody space. There is obvious mobility at L4 5. I chose to re-scraped and decorticate the interbody space at L4 5 with serrated curettes the fibrous tissue was removed and the area was packed with allograft bone graft. I chose not place a new cage within the interbody space. There is no evidence any dural tear or leak. Good hemostasis maintained. I was able to then choose a new laura contoured appropriately and place it in the screw heads from L2 L3 L4 and L5. Screws were placed and tightened appropriately and torqued appropriately. The construct was checked and found have good stability. During dissection I had decorticated the transverse processes at L4 5. We then used autogenous bone graft local autogenous bone graft and bone putty and the posterior lateral gutter at L4 5 for revision fusion at posterior lateral space. The wound had been copiously irrigated and suctioned dry. I was also able place a small amount of Tisseel over the decompressed area where there was significant scar tissue formation. Much of the scar had been removed and there was no evidence of obvious dural leak. With the hardware intact, intraoperative x-ray was again taken which showed good alignment and position of the hardware at the appropriate levels from L2 to L5 particularly at L4 5. There is no evidence of dural tear or leak. The fascia was closed for a watertight closure. The subcutaneous tissue was closed over a superficial drain. The subcuticular tissue was closed with absorbable suture. The wound was cleaned and dried and dressed with the appropriate dressing. The drapes were broken down. The patient was gently rolled back onto their hospital bed being careful to maintain their cervical spine and good neutral alignment and position. They were woken up by anesthesia, extubated, and brought to the recovery room in good stable condition. The patient will be admitted to the hospital for appropriate postoperative care, medical management and monitoring. We will continue to follow them closely about the postoperative course.
--- NOTE | 2023-02-08 13:10 | FL ---
Intraoperative/procedural fluoroscopic services were provided. Total fluoroscopy time is 4 seconds wi th a total of 4 submitted images to PACS via document up load. Please see the operative/procedural no te for further details. DAP: 238.13
[2023-02-08] MEDS: HYDROmorphone 1 MG/ML 1 ML SYRINGE IVP PRN ×2 (15:01→18:07)
[2023-02-08] MEDS: SODIUM CHLORIDE 0.9% 1,000 ML IV SCH (15:02)
[2023-02-08] MEDS: oxyCODONE-APAP 10-325MG 1 EACH TAB PO PRN (17:52)
[2023-02-08] MEDS: ONDANSETRON 4 MG/2 ML VIAL IVP PRN (18:14)
[2023-02-08] MEDS ORDERED: NALOXONE 0.4 MG/ML 1 ML VIAL IV PRN (18:21)
[2023-02-08] MEDS: diazePAM 5 MG TAB PO PRN ×2 (18:26→23:33)
[2023-02-08] MEDS: CYCLOBENZAPRINE 10 MG TAB PO PRN (18:26)
[2023-02-08] MEDS: HYDROmorphone PCA 10 MG/50 ML BAG IV PRN (18:41)
[2023-02-08] MEDS ORDERED: CYCLOBENZAPRINE 5 MG TAB PO SCH (21:00)
[2023-02-08] MEDS: ALBUTEROL NEBULIZED 2.5 MG/3 ML INHALATION SCH (22:03)
[2023-02-08] MEDS: ATORVASTATIN 40 MG TAB PO SCH (23:32)
[2023-02-08] MEDS: FAMOTIDINE 20 MG TAB PO SCH (23:33)
--- NOTE | 2023-02-09 00:21 | P.CONS ---
History of Present Illness - Reason for Consult Consult date: 02/08/23 Medical management - Chief Complaint Revision L4-L5 laminectomy. - History of Present Illness Patient is a 57-year-old male with a known history of hypertension, hyperlipidemia, osteoarthritis, GERD, COPD and a prior history of smoking with a history of back surgery was admitted to the hospital for revision of laminectomy and decompression L4-L5 with revision fasciectomy and excision of severe scar tissue. Patient has been having lower extremity radiculopathic symptoms and was found to have displaced hardware at L4-L5. Patient tolerated the procedure very well. Currently resting in bed. Awake alert and oriented x3. No complaints of chest pain or shortness of breath. Patient was tachycardic with heart rate 1 03. Denies any nausea vomiting abdominal pain or diarrhea. Patient is currently on pain management with oxycodone and Dilaudid TAPPER SUPERVISOR pump. Review of Systems Constitutional: Patient denies any fever or chills . no Generalized weakness. Abdomen: Patient denied any nausea or vomiting or abd. pain Cardiovascular: Patient denies any chest pain or short of breath no palpitations. Respiratory: patient denied any cough . no sputum production. No shortness of breath Neurologic: Patient denied any numbness or tingling headache. Musculoskeletal: Patient denies any complaints of joint swelling or deformity. Back pain. Skin: Negative Psychiatric: Negative Endocrine: No heat or cold intolerance. No recent weight gain. Genitourinary: No dysuria or hematuria. All other 14 point ROS negative except the above Past Medical History Past Medical History: Asthma, COPD, GERD/Reflux, Hyperlipidemia, Hypertension, Osteoarthritis (OA) Additional Past Medical History / Comment(s): DOES NOT TAKE FLU OR PNEUMONIA VACCINES. legs numb and tingling History of Any Multi-Drug Resistant Organisms: None Reported Past Surgical History: Back Surgery, Joint Replacement, Orthopedic Surgery Additional Past Surgical History / Comment(s): BILATERAL CARPAL TUNNEL. COLONSCOPY, back surgery with hardware. rt hip replaced Past Anesthesia/Blood Transfusion Reactions: No Reported Reaction Smoking Status: Former smoker - Past Family History Mother Family Medical History: No Reported History Additional Family Medical History / Comment(s): heart stents Father Family Medical History: No Reported History Medications and Allergies Home Medications Medication Instructions Recorded Confirmed Type Albuterol Inhaler [Ventolin Hfa 1 puff INHALATION RT-DAILY PRN 11/27/18 02/08/23 History Inhaler] Acetaminophen Tab [Tylenol] 1,000 mg PO Q8HR PRN 12/04/18 02/08/23 History Albuterol Nebulized [Ventolin 2.5 mg INHALATION BID 08/23/21 02/08/23 History Nebulized] Famotidine [Pepcid] 40 mg PO HS 08/23/21 02/08/23 History Olmesartan Medoxomil [Benicar] 40 mg PO QAM 08/23/21 02/08/23 History oxyCODONE-APAP 10-325MG [Percocet 1 tab PO Q6HR PRN 7 Days #28 tab 08/27/21 02/08/23 Rx 10-325 mg] Aspirin 81 mg PO DAILY 02/03/23 02/08/23 History Atorvastatin [Lipitor] 40 mg PO HS 02/03/23 02/08/23 History Cyclobenzaprine [Flexeril] 5 mg PO HS 02/03/23 02/08/23 History Sennosides-Docusate Sodium 1 each PO DAILY PRN 02/03/23 02/08/23 History [Senokot-S] Unk Multi Vitamin 1 tab PO DAILY 02/03/23 02/08/23 History Unk Sildenafil 1 tab PO DIRECTED PRN 02/03/23 02/08/23 History Allergies Allergy/AdvReac Type Severity Reaction Status Date / Time No Known Allergies Allergy Verified 02/08/23 06:51 Physical Exam Vitals: Vital Signs Temp Pulse Resp BP Pulse Ox 02/08/23 13:23 97.5 F L 90 17 131/75 96 02/08/23 12:53 90 16 131/70 100 02/08/23 12:38 86 16 124/63 100 02/08/23 12:23 87 16 125/69 99 02/08/23 12:08 97 16 153/77 94 L 02/08/23 11:53 99 16 149/75 97 02/08/23 11:38 97 F L 103 H 12 142/71 99 02/08/23 06:50 97.8 F 91 16 118/76 95 Intake and Output 02/07/23 02/08/23 02/08/23 22:59 06:59 14:59 Intake Total 100 2101 Output Total 400 Balance 100 1701 Intake: IV 100 2101 Output: Urine 200 Estimated Blood Loss 200 Other: Weight 91 kg PHYSICAL EXAMINATION: Patient is lying in the bed comfortably, no acute distress, awake alert and oriented.. HEENT: Normocephalic. Neck is supple. Pupils reactive. Nostrils clear. Oral cavity is moist. Neck reveals no JVD, carotid bruits, or thyromegaly. CHEST EXAMINATION: Trachea is central. Symmetrical expansion. Bibasilar diminished sounds. No wheezing or rhonchi. CARDIAC: Normal S1, S2 with no gallops. No murmurs ABDOMEN: Soft. Bowel sounds present. Nontender. No organomegaly. No abdominal bruits. Extremities: reveal no edema. No clubbing or cyanosis Neurologically awake, alert, oriented x3 with well-coordinated movements. No gross focal deficits noted Skin: No rash or skin lesions. Psychiatric: Coperative. Nonsuicidal, Musculoskeletal: No joint swelling or deformity. Assessment and Plan Assessment: Status post revision laminectomy and decompression L4-L5 with revision fissurectomy and excision of severe scar tissue. Postoperative day 0 Lower extremity radiculopathic symptoms, weakness and medical history of L4-L5 stenosis with prior decompression laminectomy and fusion L2-3 L3-4 and L4-L5 Hypertension Hyperlipidemia Osteoarthritis GERD COPD not in exacerbation Prior history of smoking DVT prophylaxis as per primary team Plan: Patient be continued on pain management, bowel regimen and encourage incentive spirometry. Gentle IV hydration. Continue with home blood pressure medications including olmesartan and albuterol inhalation as needed for shortness of breath. Continue his other home medications and follow-up closely. Follow-up CBC and BMP tomorrow. Further recommendations based on the clinical course. Thank you for your consult. Time with Patient: Greater than 30
[2023-02-09] MEDS: SODIUM CHLORIDE 0.9% 1,000 ML IV SCH ×2 (01:43→16:34)
[2023-02-09] MEDS: CYCLOBENZAPRINE 10 MG TAB PO PRN ×3 (01:55→18:54)
[2023-02-09] MEDS: ONDANSETRON 4 MG/2 ML VIAL IVP PRN (03:12)
[2023-02-09] MEDS: HYDROmorphone PCA 10 MG/50 ML BAG IV PRN (05:43)
[2023-02-09] MEDS: LACTATED RINGERS 1,000 ML IV SCH (05:44)
[2023-02-09] MEDS: diazePAM 5 MG TAB PO PRN ×3 (05:54→18:55)
[2023-02-09] MEDS: SENNOSIDES-DOCUSATE SODIUM 1 EACH TAB PO SCH (08:26)
[2023-02-09] MEDS: oxyCODONE-APAP 10-325MG 1 EACH TAB PO PRN (08:26)
[2023-02-09] MEDS: LOSARTAN 50 MG TAB PO SCH (08:26)
[2023-02-09] MEDS: ASPIRIN 81 MG PO SCH (08:26)
[2023-02-09] MEDS: MULTIVITAMINS, THERA 1 EACH TAB PO SCH (08:26)
[2023-02-09] MEDS: ALBUTEROL NEBULIZED 2.5 MG/3 ML INHALATION SCH ×2 (08:59→20:46)
--- NOTE | 2023-02-09 09:20 | P.PN ---
Progress Note - Text Progress Note Date: 02/09/23 Postoperative day #1 Patient is seen and examined today at bedside. This morning the patient feels like his pain is somewhat better controlled but he had a great deal of pain yesterday afternoon and into the evening. He still having significant pain across his lower back and or to his gluteus bilaterally. He says the pain does not really extend down his legs. He denies any chest pain shortness of breath. He is a little bit nauseous but is not throwing up. He has tolerated some small diet and some liquids. His Contreras is still intact. He denies any headaches Physical Exam Afebrile with stable vital signs. He has occasional tachycardia due to his pain Abdomen is soft nontender. Chest has good excursion deep and space expiration The incision site is clean dry and intact. No erythema there is no purulence. The dressing is clear Extremities have not had neurologic change from prior to surgery. He has sustained dorsiflexion and flexion and EHL intact Calves and thighs were soft nontender without evidence of DVT. Assessment/Plan Postoperative day #1 status post revision decompression and fusion at L4 5 for a nonunion at that level with displaced hardware Patient is progressing as expected from the surgery, but with somewhat more pain in his lower back which has been a little bit difficult to control. We switched him over to SENIOR BENEFITS SPECIALIST yesterday evening and that seems to be working somewhat better for him. I think that we can continue the SENIOR BENEFITS SPECIALIST overnight tonight but plantar discontinue the SENIOR BENEFITS SPECIALIST in the morning and then switch over to Dilaudid 1-2 mg IV every 3 hours with oral Percocet 10's which she was taking at home every 6 hours. Hopefully we will be able to transition him oral from IV medication orals in preparation for going home At surgery We were able to remove the displaced hardware and revise the decompression and fusion at L4 5 with his prior decompression fusion L2 3 L3 4 L4 5. We will continue to increase the patient's mobilization with therapy. We'll discontinue his Contreras today as well. We will continue pain control with oral or IV medications. We'll continue to follow patient closely.
[2023-02-09 10:53] LABS: Basophils # (A) 0.03 X 10*3/uL (0.00-0.10); Basophils % (A) 0.2 %; Eosinophils # (A) 0 X 10*3/uL (0.04-0.35); Eosinophils % (A) 0 %; HCT 40.1 % (39.6-50.0); HGB 13.1 g/dL (13.0-17.0); Immature Grans, Automated 0.5 %; Lymphocytes # (A) 1.23 X 10*3/uL (0.90-5.00); Lymphocytes % (A) 6.4 %; MCH 31.6 pg (27.0-32.0); MCHC 32.7 g/dL (32.0-37.0); MCV 96.9 fL (80.0-97.0); Mean Platelet Volume 9.7 fL (9.5-12.2); Monocytes # (A) 1.46 X 10*3/uL (0.20-1.00); Monocytes % (A) 7.6 %; NRBC Per 100 WBC 0 /100 WBCS (0.0-0.0); Neutrophils # (A) 16.27 X 10*3/uL (1.80-7.70); Neutrophils % (A) 85.3 %; Platelet Count 237 X 10*3/uL (140-440); RBC 4.14 X 10*6/uL (4.40-5.60); RDW 12.3 % (11.5-14.5); WBC 19.09 X 10*3/uL (4.50-10.00)
[2023-02-09 11:13] LABS: African American GFR (CKD) 108.7 (60.0-200.0); Anion Gap 13.1 mmol/L (10.00-18.00); BUN/Creat Ratio 13.56 Ratio (12.00-20.00); Blood Urea Nitrogen 12.2 mg/dL (9.0-27.0); Calcium 8.9 mg/dL (8.7-10.3); Carbon Dioxide 21.9 mmol/L (20.0-27.5); Non-African American GFR(CKD) 93.8 (60.0-200.0); Potassium 3.9 mmol/L (3.5-5.5)
[2023-02-09 18:53] LABS: Basophils % (A) 0 %; Eosinophils # (A) 0.1 k/uL (0-0.7); Eosinophils % (A) 1 %; HCT 38.6 % (39.0-53.0); Lymphocytes # (A) 1.7 k/uL (1.0-4.8); Lymphocytes % (A) 9 %; MCH 32.5 pg (25.0-35.0); MCHC 33.6 g/dL (31.0-37.0); MCV 96.9 fL (80.0-100.0); Monocytes # (A) 0.9 k/uL (0-1.0); Monocytes % (A) 5 %; Neutrophils # (A) 15.1 k/uL (1.3-7.7); Neutrophils % (A) 84 %; Platelet Count 209 k/uL (150-450); RBC 3.99 m/uL (4.30-5.90); RDW 12.3 % (11.5-15.5)
--- NOTE | 2023-02-09 19:52 | XR ---
EXAMINATION TYPE: XR chest 1V portable DATE OF EXAM: 02/09/2023 COMPARISON: 01/31/2023 INDICATION: Fever TECHNIQUE: Single frontal view of the chest is obtained. FINDINGS: The heart size is normal. The pulmonary vasculature is normal. The lungs are clear. There is elevation of the right diaphragm. IMPRESSION: 1. No acute pulmonary process. 2. New elevation of the right diaphragm.
[2023-02-09] MEDS: FAMOTIDINE 20 MG TAB PO SCH (21:01)
[2023-02-09] MEDS: ATORVASTATIN 40 MG TAB PO SCH (21:01)
--- NOTE | 2023-02-09 23:51 | P.PN ---
Subjective Progress Note Date: 02/09/23 Patient is a 57-year-old male with a known history of hypertension, hyperlipidemia, osteoarthritis, GERD, COPD and a prior history of smoking with a history of back surgery was admitted to the hospital for revision of laminectomy and decompression L4-L5 with revision fasciectomy and excision of severe scar tissue. Patient has been having lower extremity radiculopathic symptoms and was found to have displaced hardware at L4-L5. Patient tolerated the procedure very well. Currently resting in bed. Awake alert and oriented x3. No complaints of chest pain or shortness of breath. Patient was tachycardic with heart rate 1 03. Denies any nausea vomiting abdominal pain or diarrhea. Patient is currently on pain management with oxycodone and Dilaudid [employer] pump. 02/09/2023 Patient is currently lying in bed. Lethargic. Arousable with verbal stimuli. Patient is complaining of back pain. Patient has a Tmax of 100.3 last night. No nausea vomiting abdominal pain. No diarrhea. Patient is on [employer] pump. Today afternoon patient was complaining of chest tightness. Chest x-ray and EKG was done. Troponin was ordered. Patient is having difficulty using incentive spirometry. No cough or sputum production. Patient is also noted to have bright red blood and blood clots per rectum today afternoon.. Laboratory data showed WBC 19.0 hemoglobin 13.1 and platelets 235 and sodium 134 potassium 3.9 chloride 99 bicarb is 21.9 BUN 12.2 and creatinine 0.9 and calcium 8.9. Current medications reviewed. Objective - Vital Signs Vital signs: Vital Signs Temp 99.3 F 02/09/23 07:04 Pulse 114 H 02/09/23 07:04 Resp 17 02/09/23 07:04 BP 158/83 02/09/23 07:04 Pulse Ox 94 L 02/09/23 08:59 FiO2 21 02/09/23 08:59 Intake & Output 02/08/23 02/09/23 02/09/23 18:59 06:59 18:59 Intake Total 2101 800 Output Total 1100 1100 Balance 1001 -300 Weight 91 kg Intake: IV 2101 Intake, IV Titration 800 Amount Sodium Chloride 0.9% 1, 750 000 ml @ 75 mls/hr IV . [id number] [facility] Rx#:[id number] ceFAZolin 2 gm In Sodium 50 Chloride 0.9% 50 ml @ 100 mls/hr IVPB Q8HR [facility] Rx# :[id number] Output: Urine 900 1100 Estimated Blood Loss 200 Other: Voiding Method Indwelling Catheter Indwelling Catheter - Exam PHYSICAL EXAMINATION: Patient is lying in the bed comfortably, no acute distress, awake alert and oriented.. HEENT: Normocephalic. Neck is supple. Pupils reactive. Nostrils clear. Oral cavity is moist. Neck reveals no JVD, carotid bruits, or thyromegaly. CHEST EXAMINATION: Trachea is central. Symmetrical expansion. Bibasilar diminished sounds. No wheezing or rhonchi. CARDIAC: Normal S1, S2 with no gallops. No murmurs ABDOMEN: Soft. Bowel sounds present. Nontender. No organomegaly. No abdominal bruits. Extremities: reveal no edema. No clubbing or cyanosis Neurologically awake, alert, oriented x3 with well-coordinated movements. No gross focal deficits noted Skin: No rash or skin lesions. Psychiatric: Coperative. Nonsuicidal, Musculoskeletal: No joint swelling or deformity. - Labs CBC & Chem 7: 02/09/23 18:37 02/09/23 07:48 Assessment and Plan Assessment: Status post revision laminectomy and decompression L4-L5 with revision fissurectomy and excision of severe scar tissue. Postoperative day 1 Leukocytosis with low-grade fever. Rule out infection. Continue with incentive spirometry. Lower extremity radiculopathic symptoms, weakness and medical history of L4-L5 stenosis with prior decompression laminectomy and fusion L2-3 L3-4 and L4-L5 Hypertension Hyperlipidemia Osteoarthritis GERD COPD not in exacerbation Prior history of smoking DVT prophylaxis as per primary team Plan: Patient be continued on pain management, bowel regimen and encourage incentive spirometry. Gentle IV hydration. Chest x-ray, EKG and troponin was ordered. Continue with home blood pressure medications including olmesartan and albuterol inhalation as needed for shortness of breath. Follow-up CBC and BMP tomorrow. Further recommendations based on the clinical course. Time with Patient: Greater than 30
[2023-02-10] MEDS: diazePAM 5 MG TAB PO PRN (00:26)
[2023-02-10] MEDS: SODIUM CHLORIDE 0.9% 1,000 ML IV SCH ×2 (06:00→17:21)
--- NOTE | 2023-02-10 08:56 | P.PN ---
Progress Note - Text Progress Note Date: 02/10/23 Orthopedic Spine History of present illness: Patient is a pleasant 57-year-old male who is seen and examined at the bedside following L4-5 revision decompression and fusion for nonunion with displaced hardware. His lower extremity leg pain has improved but he does continue to have significant pain at the surgical site as lumbar spine in his buttocks. The pain is not significantly radiating down his lower extremities. He is not spirits any significant lower extremity weakness. He does continue with IV Dilaudid with PEDIATRIC DIETICIAN and oral Percocet. Yesterday patient did notice blood in his stool. He was seen and examined by Dr. Garcia and general surgery this morning. They're planning for a scope today. He is not experiencing any abdominal pain. Patient is being seen and examined for his other medical diagnoses by medicine including COPD, hyperlipidemia, hypertension, and asthma Physical Exam Lumbar Fusion: Status post surgical day number 2 Patient is awake, alert, and oriented 3 Vital signs stable Good chest excursion with deep inspiration and expiration Dorsiflexion, plantarflexion, and extensor hallucis longus positive sustained bilaterally No signs or symptoms of DVT; no calf pain; pneumatic cuffs intact bilateral lower extremities Optifoam dressing is clean, dry, and intact over the lumbar spine; no erythema, purulence, or signs of infection Neurovascularly intact bilaterally lower extremities Assessment: Status post L4-5 revision decompression and fusion for nonunion with displaced hardware Low back pain Lumbar stenosis Bilateral buttock pain Hematochezia Hyperlipidemia Hypertension COPD Asthma Plan: 1. Ambulate as tolerated; work with Physical Therapy to increase mobilization 2. Continue pain control with IV and oral medications; patient was placed on PEDIATRIC DIETICIAN yesterday. We'll plan to discontinue the PEDIATRIC DIETICIAN today. We will convert to Dilaudid 1-2 mg IV every 3 hours along with Percocet 10 mg/325 mg every 6 hours for pain control. As his pain improves, we'll plan to see him off of IV Dilaudid and continue with oral Percocet. He'll plan to continue with oral Percocet in the outpatient setting for pain control. 3. Dressings to remain intact with Optifoam; patient may shower with dressings intact 4. Medical management can continue to manage patient for patient's other medical diagnoses 5. Patient will continue VAC examined by general surgery for further evaluation of an hematochezia; they are planning for a scope We will continue to follow the patient closely; patient continues to have difficulty with mobilization and ambulation postoperatively. He has been working with physical therapy and is progressing. He continues to require IV and oral medications for pain control. I do not feel the patient is ready for discharge home. Patient will continue to remain in the hospital until his symptoms improve and his pain is better controlled. Patient also has blood in his stool and is undergoing further evaluation with general surgery who is planning for a scope. We will plan to have the patient be admitted to in patient status during his admission. Patient will most likely continue to remain in the hospital over the next couple days. 6. We will continue to follow the patient closely; Patient can follow-up with Willie oMntez PA-C or Dr. Maik Funes at [facility] in 2-3 weeks following discharge
[2023-02-10] MEDS: ALBUTEROL NEBULIZED 2.5 MG/3 ML INHALATION SCH ×2 (09:14→21:11)
[2023-02-10] MEDS: SENNOSIDES-DOCUSATE SODIUM 1 EACH TAB PO SCH ×2 (09:53→20:44)
[2023-02-10] MEDS: ASPIRIN 81 MG PO SCH (09:53)
[2023-02-10] MEDS: HYDROmorphone 1 MG/ML 1 ML SYRINGE IVP PRN ×4 (09:53→20:44)
[2023-02-10] MEDS: MULTIVITAMINS, THERA 1 EACH TAB PO SCH (09:53)
[2023-02-10] MEDS: LOSARTAN 50 MG TAB PO SCH (09:53)
--- NOTE | 2023-02-10 10:04 | P.GSCN ---
History of Present Illness Consult date: 02/10/23 Reason for Consult: Rectal bleeding History of present illness: This a 57-year-old male who has had some complaints of rectal bleeding. Patient states he has known history of hemorrhoids. Past Medical History Past Medical History: Asthma, COPD, GERD/Reflux, Hyperlipidemia, Hypertension, Osteoarthritis (OA) Additional Past Medical History / Comment(s): DOES NOT TAKE FLU OR PNEUMONIA VACCINES. legs numb and tingling History of Any Multi-Drug Resistant Organisms: None Reported Past Surgical History: Back Surgery, Joint Replacement, Orthopedic Surgery Additional Past Surgical History / Comment(s): BILATERAL CARPAL TUNNEL. COLONSCOPY, back surgery with hardware. rt hip replaced Past Anesthesia/Blood Transfusion Reactions: No Reported Reaction Smoking Status: Former smoker - Past Family History Mother Family Medical History: No Reported History Additional Family Medical History / Comment(s): heart stents Father Family Medical History: No Reported History Medications and Allergies Home Medications Medication Instructions Recorded Confirmed Type Albuterol Inhaler [Ventolin Hfa 1 puff INHALATION RT-DAILY PRN 11/27/18 02/08/23 History Inhaler] Acetaminophen Tab [Tylenol] 1,000 mg PO Q8HR PRN 12/04/18 02/08/23 History Albuterol Nebulized [Ventolin 2.5 mg INHALATION BID 08/23/21 02/08/23 History Nebulized] Famotidine [Pepcid] 40 mg PO HS 08/23/21 02/08/23 History Olmesartan Medoxomil [Benicar] 40 mg PO QAM 08/23/21 02/08/23 History oxyCODONE-APAP 10-325MG [Percocet 1 tab PO Q6HR PRN 7 Days #28 tab 08/27/21 02/08/23 Rx 10-325 mg] Aspirin 81 mg PO DAILY 02/03/23 02/08/23 History Atorvastatin [Lipitor] 40 mg PO HS 02/03/23 02/08/23 History Cyclobenzaprine [Flexeril] 5 mg PO HS 02/03/23 02/08/23 History Sennosides-Docusate Sodium 1 each PO DAILY PRN 02/03/23 02/08/23 History [Senokot-S] Unk Multi Vitamin 1 tab PO DAILY 05/19/23 05/24/23 History Unk Sildenafil 1 tab PO DIRECTED PRN 02/03/23 02/08/23 History Allergies Allergy/AdvReac Type Severity Reaction Status Date / Time No Known Allergies Allergy Verified 02/08/23 06:51 Surgical - Exam Vital Signs Temp Pulse Resp BP Pulse Ox 97.8 F 91 16 118/76 95 02/08/23 06:50 02/08/23 06:50 02/08/23 06:50 02/08/23 06:50 02/08/23 06:50 - General well developed, well nourished, no distress - Eyes PERRL - ENT normal pinna - Neck no masses - Respiratory normal expansion - Cardiovascular Rhythm: regular - Abdomen Abdomen: soft, non tender Results - Labs 02/09/23 18:37 02/09/23 07:48 Abnormal Lab Results - Last 24 Hours (Table) 02/09/23 02/09/23 02/09/23 Range/Units 07:48 07:48 18:37 WBC 19.09 H 18.0 H (4.50-10.00) X 10*3/uL RBC 4.14 L 3.99 L (4.40-5.60) X 10*6/uL Hct 38.6 L (39.0-53.0) % Immature Gran # 0.10 H (0.00-0.04) X 10*3/uL Neutrophils # 16.27 H 15.1 H (1.80-7.70) X 10*3/uL Monocytes # 1.46 H (0.20-1.00) X 10*3/uL Eosinophils # 0 L (0.04-0.35) X 10*3/uL Sodium 134 L (135-145) mmol/L Diabetes panel 02/09/23 Range/Units 07:48 Sodium 134 L (135-145) mmol/L Potassium 3.9 (3.5-5.5) mmol/L Chloride 99 (96-109) mmol/L Carbon Dioxide 21.9 (20.0-27.5) mmol/L BUN 12.2 (9.0-27.0) mg/dL Creatinine 0.9 (0.6-1.5) mg/dL Glucose 86 (70-110) mg/dL Calcium 8.9 (8.7-10.3) mg/dL Calcium panel 02/09/23 Range/Units 07:48 Calcium 8.9 (8.7-10.3) mg/dL Pituitary panel 02/09/23 Range/Units 07:48 Sodium 134 L (135-145) mmol/L Potassium 3.9 (3.5-5.5) mmol/L Chloride 99 (96-109) mmol/L Carbon Dioxide 21.9 (20.0-27.5) mmol/L BUN 12.2 (9.0-27.0) mg/dL Creatinine 0.9 (0.6-1.5) mg/dL Glucose 86 (70-110) mg/dL Calcium 8.9 (8.7-10.3) mg/dL Adrenal panel 02/09/23 Range/Units 07:48 Sodium 134 L (135-145) mmol/L Potassium 3.9 (3.5-5.5) mmol/L Chloride 99 (96-109) mmol/L Carbon Dioxide 21.9 (20.0-27.5) mmol/L BUN 12.2 (9.0-27.0) mg/dL Creatinine 0.9 (0.6-1.5) mg/dL Glucose 86 (70-110) mg/dL Calcium 8.9 (8.7-10.3) mg/dL Assessment and Plan Assessment: Blood per rectum. Patient's he will was 13. He'll be observed. We will plan for outpatient endoscopy.
[2023-02-10] MEDS: LACTATED RINGERS 1,000 ML IV SCH (10:56)
[2023-02-10 13:40] VITALS: RESP 18
[2023-02-10] MEDS ORDERED: MAGNESIUM HYDROXIDE 2,400 MG/10 ML CUP PO PRN (18:26)
[2023-02-10] MEDS: ATORVASTATIN 40 MG TAB PO SCH (20:44)
[2023-02-10] MEDS: FAMOTIDINE 20 MG TAB PO SCH (20:44)
[2023-02-11] MEDS: HYDROmorphone 1 MG/ML 1 ML SYRINGE IVP PRN ×2 (00:43→04:18)
[2023-02-11] MEDS: diazePAM 5 MG TAB PO PRN (03:26)
[2023-02-11] MEDS: oxyCODONE-APAP 10-325MG 1 EACH TAB PO PRN (06:10)
--- NOTE | 2023-02-11 07:09 | P.DS ---
Providers Date of admission: 02/08/23 06:14 Attending physician: Umesh Funes Consults: 02/08/23 11:23 Consult Physician Routine Consulting Provider: Latasha Carvalho Consult Reason/Comments: Medical management Do you want consulting provider notified?: Yes 02/09/23 18:04 Consult Physician Routine Consulting Provider: Chele Garica Consult Reason/Comments: [facility] Do you want consulting provider notified?: Yes Primary care physician: Krishna Haywood [facility] Course: The patient presented on the day of admission as per their operative note. He had had a displaced hardware at L4 5 from his prior decompression and fusion L2 to L5 for his spinal stenosis with lotion radiculopathy and underwent surgical procedure as per his operative note for revision decompression L4 5 with removal of displaced hardware revision decompression. The patient initially had significant difficulty controlling his pain but is now controlling pain well with oral medications. She also had some bloody stools which was evaluated with general surgery. He is not anemic is not having any symptoms beyond the stool with blood and they've decided to continue to observe him. He says this has happened before and usually settles down after a day or 2. He says that his legs seem to be doing better since his surgery. He is more mobile. He is voiding freely. Physical Exam The incision site is clean dry and intact. There is no erythema no drainage. There is no purulence no evidence of infection. There is don't drainage on the dressing. There is no purulence there is no evidence of infection Abdomen soft and nontender. Chest has good excursion with deep inspiration and expiration. The patient has active and passive range of motion intact at the upper and lower extremities. There is no acute change in neurologic status. He has sustained a/plantar flexion and EHL is large damage. He has a superficial abrasion his right elbow which overall appears clean. He developed this when trying to move himself in bed constantly scraping his elbow and support himself. He feels this is healing well now that he is not having to use elbow or motion. Hospital Course Postoperative day #3 status post revision decompression fusion L4 5 for his displaced hardware with recurrent stenosis and prior she decompression and fusion L2 to L5 with lower extremity radiculopathy. The patient has been making steady progress postoperatively. They have completed the prophylactic antibiotics without any signs or symptoms of infection. The patient has been able to advance their diet, and is tolerating diet adequately. 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 The patient has been able to increase their mobilization. He is now feeling better as he mobilizes and sits in a chair. He seems to turn the corner to the degree in terms of his pain control and his mobilization and is interested in going home today. The patient had findings of bloody stools and was evaluated by general surgery. Apparently patient has had this in the past and his hemoglobin is remaining stable without any evidence of anemia or other issue. They feel he can follow him up on outpatient basis and monitor him for outpatient colonoscopy. The patient is agreeable for this and will follow up appropriately for outpatient colonoscopy. The patient has progressed appropriately. I think they are in good stable condition for discharge today. They will be sent home with appropriate prescriptions. He'll go ahead and increase his Percocet to every 4 hours as needed for pain this week and have him start his muscle relaxers through the day for now. I answered their questions to the best of my ability in a language that they can understand and they are agreeable with the plan. He'll follow-up with general surgery regarding his colonoscopy. They will follow up with us as directed in approximately 2 weeks or sooner if she is having problems. Patient Condition at Discharge: Fair Plan - Discharge Summary Discharge Rx Participant: No New Discharge Prescriptions: New Cyclobenzaprine [Flexeril] 10 mg PO TID PRN #90 tab PRN Reason: Spasms oxyCODONE HCL/ACETAMINOPHEN [Percocet 10-325 mg] 1 tab PO Q4HR PRN 7 Days #42 tab PRN Reason: Severe Pain (Scale 7 To 10) No Action Albuterol Inhaler [Ventolin Hfa Inhaler] 1 puff INHALATION RT-DAILY PRN PRN Reason: Shortness Of Breath Or Wheezing Acetaminophen Tab [Tylenol] 1,000 mg PO Q8HR PRN PRN Reason: Pain Sennosides-Docusate Sodium [Senokot-S] 1 each PO DAILY PRN PRN Reason: Constipation Atorvastatin [Lipitor] 40 mg PO HS Cyclobenzaprine [Flexeril] 5 mg PO HS Aspirin 81 mg PO DAILY Unk Sildenafil 1 tab PO DIRECTED PRN PRN Reason: E.D. Albuterol Nebulized [Ventolin Nebulized] 2.5 mg INHALATION BID Famotidine [Pepcid] 40 mg PO HS Olmesartan Medoxomil [Benicar] 40 mg PO QAM oxyCODONE-APAP 10-325MG [Percocet 10-325 mg] 1 tab PO Q6HR PRN 7 Days #28 tab PRN Reason: Pain Unk Multi Vitamin 1 tab PO DAILY Discharge Medication List Albuterol Inhaler [Ventolin Hfa Inhaler] 1 puff INHALATION RT-DAILY PRN 11/27/18 [History] Acetaminophen Tab [Tylenol] 1,000 mg PO Q8HR PRN 12/04/18 [History] Albuterol Nebulized [Ventolin Nebulized] 2.5 mg INHALATION BID 08/23/21 [History] Famotidine [Pepcid] 40 mg PO HS 08/23/21 [History] Olmesartan Medoxomil [Benicar] 40 mg PO QAM 08/23/21 [History] oxyCODONE-APAP 10-325MG [Percocet 10-325 mg] 1 tab PO Q6HR PRN 7 Days #28 tab 08/27/21 [Rx] Aspirin 81 mg PO DAILY 02/03/23 [History] Atorvastatin [Lipitor] 40 mg PO HS 02/03/23 [History] Cyclobenzaprine [Flexeril] 5 mg PO HS 02/03/23 [History] Sennosides-Docusate Sodium [Senokot-S] 1 each PO DAILY PRN 02/03/23 [History] Unk Multi Vitamin 1 tab PO DAILY 02/03/23 [History] Unk Sildenafil 1 tab PO DIRECTED PRN 02/03/23 [History] Cyclobenzaprine [Flexeril] 10 mg PO TID PRN #90 tab 02/11/23 [Rx] oxyCODONE HCL/ACETAMINOPHEN [Percocet 10-325 mg] 1 tab PO Q4HR PRN 7 Days #42 tab 02/11/23 [Rx] Follow up Appointment(s)/Referral(s): Willie Montez, ANAYELI [PHYSICIAN COMMERCIAL SHRIMPING CAPTAIN] - 2 Weeks (Patient may follow-up with Willie Montez PA-C or Dr. Maik Funes at [facility] in 2-3 weeks following discharge. ) Chele Garcia MD [STAFF PHYSICIAN] - 1 Week Activity/Diet/Wound Care/Special Instructions: Follow-up with Dr. Garcia with general surgery regarding outpatient colonoscopy regarding bloody stools. 1. Patient may shower with Optifoam dressing intact. 2. Patient may remove Optifoam dressing in 3 days and shower without a dressing at that time. 3. Patient should refrain from driving until at least after their first follow- up appointment in the office. 4. Patient should avoid excessive bending, twisting, lifting; avoid overhead lifting; no lifting greater than 10 pounds 5. Take medications as prescribed 6. Patient should avoid anti-inflammatory medications over the next 6 weeks postoperatively 7. Do not soak in tub Discharge Disposition: HOME SELF-CARE
[2023-02-11] MEDS: ALBUTEROL NEBULIZED 2.5 MG/3 ML INHALATION SCH (08:12)
[2023-02-11 08:32] VITALS: BP 117/76; PULSE 105; TEMP 98.3
[2023-02-11] MEDS: ASPIRIN 81 MG PO SCH (08:34)
[2023-02-11] MEDS: LOSARTAN 50 MG TAB PO SCH (08:34)
[2023-02-11] MEDS: MULTIVITAMINS, THERA 1 EACH TAB PO SCH (08:35)
[2023-02-11] MEDS: SENNOSIDES-DOCUSATE SODIUM 1 EACH TAB PO SCH (08:35)
--- NOTE | 2023-02-11 09:55 | P.PN ---
Progress Note - Text Progress Note Date: 02/11/23 Patient [place] stable. He wants to go home. He has a known history of chronic hemorrhoids. On exam vitals are stable. Abdomen soft. Patient will be discharged home today. He'll follow-up in the office for outpatient endoscopy to evaluate his minimal lower GI bleed.
[2023-02-11 10:15] LABS: African American GFR (CKD) 120.6 (60.0-200.0); Anion Gap 11.1 mmol/L (10.00-18.00); BUN/Creat Ratio 20.86 Ratio (12.00-20.00); Basophils # (A) 0.03 X 10*3/uL (0.00-0.10); Basophils % (A) 0.2 %; Blood Urea Nitrogen 14.6 mg/dL (9.0-27.0); Calcium 8.6 mg/dL (8.7-10.3); Carbon Dioxide 21.9 mmol/L (20.0-27.5); Eosinophils # (A) 0.11 X 10*3/uL (0.04-0.35); Eosinophils % (A) 0.8 %; HCT 32.3 % (39.6-50.0); HGB 10.8 g/dL (13.0-17.0); Immature Grans, Automated 0.4 %; Lymphocytes # (A) 2.39 X 10*3/uL (0.90-5.00); Lymphocytes % (A) 17.7 %; MCH 32.3 pg (27.0-32.0); MCHC 33.4 g/dL (32.0-37.0); MCV 96.7 fL (80.0-97.0); Mean Platelet Volume 9.6 fL (9.5-12.2); Monocytes # (A) 1.08 X 10*3/uL (0.20-1.00); NRBC Per 100 WBC 0 /100 WBCS (0.0-0.0); Neutrophils # (A) 9.87 X 10*3/uL (1.80-7.70); Neutrophils % (A) 72.9 %; Platelet Count 192 X 10*3/uL (140-440); Potassium 3.8 mmol/L (3.5-5.5); RBC 3.34 X 10*6/uL (4.40-5.60); RDW 12.4 % (11.5-14.5); WBC 13.53 X 10*3/uL (4.50-10.00)
== END 2023-02-11 11:12 | disposition home or self-care (01) | DRG 460 ==
LOC: 2ORMAIN 06:14 → 4SSUR 12:26
PROVIDERS: ADMIT Orthopaedic Surgery Orthopaedic Surgery of the Spine; ATTEND Orthopaedic Surgery Orthopaedic Surgery of the Spine
PROC: 0JB70ZZ Excision of Back Subcutaneous Tissue and Fascia, Open Approach (ICD-10-PCS; principal; 2023-02-08 07:30)
PROC: 30233N0 Transfusion of Autologous Red Blood Cells into Peripheral Vein, Percutaneous Approach (ICD-10-PCS; principal; 2023-02-08 07:30)
PROC: 0SP004Z Removal of Internal Fixation Device from Lumbar Vertebral Joint, Open Approach (ICD-10-PCS; principal; 2023-02-08 07:30)
PROC: 0SP00AZ Removal of Interbody Fusion Device from Lumbar Vertebral Joint, Open Approach (ICD-10-PCS; principal; 2023-02-08 07:30)
PROC: 0SG00AJ Fusion of Lumbar Vertebral Joint with Interbody Fusion Device, Posterior Approach, Anterior Column, Open Approach (ICD-10-PCS; principal; 2023-02-08 07:30)
PROC: 01NB0ZZ Release Lumbar Nerve, Open Approach (ICD-10-PCS; principal; 2023-02-08 07:30)
DX: T84.226A Displacement of internal fixation device of vertebrae, initial encounter (principal); M96.0 Pseudarthrosis after fusion or arthrodesis; K92.1 Melena; J44.9 Chronic obstructive pulmonary disease, unspecified; D72.829 Elevated white blood cell count, unspecified; I10 Essential (primary) hypertension; K59.00 Constipation, unspecified; M48.061 Spinal stenosis, lumbar region without neurogenic claudication; M54.16 Radiculopathy, lumbar region; Y79.1 Therapeutic (nonsurgical) and rehabilitative orthopedic devices associated with adverse incidents; E78.5 Hyperlipidemia, unspecified; Z87.891 Personal history of nicotine dependence; K21.9 Gastro-esophageal reflux disease without esophagitis; M19.90 Unspecified osteoarthritis, unspecified site; L90.5 Scar conditions and fibrosis of skin; K64.9 Unspecified hemorrhoids; R00.0 Tachycardia, unspecified; Z96.641 Presence of right artificial hip joint; Z79.51 Long term (current) use of inhaled steroids; Z79.899 Other long term (current) drug therapy; Z79.82 Long term (current) use of aspirin
CPT/HCPCS: 71045; 72100; 80048; 83605; 84484; 85025; 86850; 86891; 86900; 86901; 93005; 94640; 94760